=== PATIENT | male | born 1965 | race Caucasian/White ===

== ENCOUNTER 2018-12-19 15:15 | Emergency (ER) | payer SELFPAY ==
[2018-12-19] MEDS ORDERED: IV NORMAL SALINE 1,000ML 1,000 ML IV ONE ×2 (15:30→17:30)
--- NOTE | 2018-12-19 15:45 | PHYS DOC ---
Past History Past Medical History: CVA, Depression, Diabetes, High Cholesterol, Heart Disease, Hypertension, Other Additional Past Medical Histor: kidney injury Smoking: Cigarettes Alcohol Use: Heavy Adult General Chief Complaint Chief Complaint: ALTERED MENTAL STATUS HPI HPI Patient is a 53-year-old male brought in by EMS due to weakness. This has been going on for the past several days. Nothing seems to make it better or worse. Patient denies any chest pain or palpitations. Patient was brought in by EMS. His blood sugar was in the 130s for EMS. No fever. No specific side for the weakness. More an overall feeling of tiredness.[] Review of Systems Review of Systems Constitutional: Denies fever or chills [] Eyes: Denies change in visual acuity, redness, or eye pain [] HENT: Denies nasal congestion or sore throat [] Respiratory: Denies cough or shortness of breath [] Cardiovascular: No chest pain or palpitations[] GI: Denies abdominal pain, nausea, vomiting, bloody stools or diarrhea [] : Denies dysuria or hematuria [] Musculoskeletal: Denies back pain or joint pain [] Integument: Denies rash or skin lesions [] Neurologic: Denies headache, focal weakness or sensory changes [] Endocrine: Denies polyuria or polydipsia [] All other systems were reviewed and found to be within normal limits, except as documented in this note. Current Medications Current Medications Current Medications Medications (Trade) Dose Ordered Sig/Jace Start Time Stop Time Status Last Admin Dose Admin Sodium Chloride 1,000 ml @ 1,000 mls/hr 1X ONCE 12/19/18 15:30 12/19/18 16:29 UNV 12/19/18 15:36 1,000 MLS/HR Physical Exam Physical Exam Constitutional: Well developed, well nourished, sleepy, non-toxic appearance. [] HENT: Normocephalic, atraumatic, bilateral external ears normal, oropharynx moist, no oral exudates, nose normal. [] Eyes: PERRLA, EOMI, conjunctiva normal, no discharge. [] Neck: Normal range of motion, no tenderness, supple, no stridor. [] Cardiovascular:Heart rate regular rhythm, no murmur [] Lungs & Thorax: Bilateral breath sounds clear to auscultation [] Abdomen: Bowel sounds normal, soft, no tenderness, no masses, no pulsatile masses. [] Skin: Warm, dry, no erythema, no rash. [] Back: No tenderness, no CVA tenderness. [] Extremities: No tenderness, no cyanosis, no clubbing, ROM intact, no edema. [] Neurologic: Somnolent but aroused to verbal stimuli and oriented X 3, normal m otor function, normal sensory function, no focal deficits noted. [] Psychologic: Affect flat, judgement normal, mood normal. [] EKG EKG EKG shows a sinus rhythm at 98 bpm, left axis, normal QTC at 446 ms, no ST elevations. No acute changes when compared with EKG of 03/03/2012. Interpreted by me at 1523.[] Radiology/Procedures Radiology/Procedures PROCEDURE: PORTABLE CHEST 1V PORTABLE CHEST 1V History: Weakness Comparison: May 30, 2014. Findings: Low lung volumes with patchy bibasilar opacities. Linear density projecting over the left lung apex, similar compared to prior. No pleural effusion. Normal heart size. Impression: 1. Low lung volumes with patchy bibasilar opacities, most likely atelectasis.[] Course & Med Decision Making Course & Med Decision Making Pertinent Labs and Imaging studies reviewed. (See chart for details) ED course: Patient arrived, was placed in bed, and tolerated exam well. Patient had 3 medicines with him to include Requip, temazepam, and hydrocodone 10 mg/acetaminophen 325 mg tablets. These were all 3 filled on 12/14/2018. The hydrocodone-acetaminophen was a prescription for 90 tablets and there are approximately 30 tablets remaining in the bottle. IV access was established, he was given IV fluids because his blood pressure was noted to be on the low side and he was mildly tachycardic. An initial in and out catheter was performed to provide urine. Patient's mental status did improve during his emergency department stay. Laboratory testing was noted, additional fluids were adm inistered and an indwelling urinary catheter was placed. Consultation was made with the hospitalist service for admission. It was and that the patient would do better at [facility] due to greater services available including nephrology. Findings were discussed with patient and family who voiced understanding. All questions were answered. He was transferred in improved condition. Medical decision making: Patient with somnolence most likely is result of to much narcotic use. His ammonia is also noted to be elevated. He is also noted to be in acute renal failure with a mild hyperkalemia. He is being transferred for higher level of care.[] Dragon Disclaimer Dragon Disclaimer This electronic medical record was generated, in whole or in part, using a voice recognition dictation system. Departure Departure: Impression: Primary Impression: Altered mental status Additional Impressions: Hyperkalemia Acute renal failure Hyperammonemia Disposition: 05 TRANSFER OTHER Admitting Physician: Claude Parekh Condition: STABLE Referrals: PCP,NO (PCP) Problem Qualifiers Primary Impression: Altered mental status Altered mental status type: somnolence Qualified Codes: R40.0 - Somnolence Additional Impressions: Acute renal failure Acute renal failure type: unspecified Qualified Codes: N17.9 - Acute kidney failure, unspecified LANIE FOWLER DO Dec 19, 2018 15:45
[2018-12-19 15:52] LABS: BASO % 0 % (0-3); EOS # 0.2 x10^3/uL (0.0-0.7); EOS % 3 % (0-3); HEMATOCRIT 38.6 % (39.0-53.0); HEMOGLOBIN 12.7 g/dL (13.0-17.5); LYMPH % 12 % (24-48); MEAN CORPUSCULAR HEMOGLOBIN 29 pg (25-35); MEAN CORPUSCULAR HGB CONC 33 g/dL (31-37); MEAN CORPUSCULAR VOLUME 89 fL (79-100); MONO # 0.9 x10^3/uL (0.0-1.1); MONO % 11 % (0-9); NEUT # 5.9 x10^3uL (1.8-7.7); NEUT % 74 % (31-73); PLATELET COUNT 150 x10^3/uL (140-400); RED BLOOD COUNT 4.35 x10^6/uL (4.30-5.70); RED CELL DISTRIBUTION WIDTH 14.8 % (11.5-14.5); WHITE BLOOD COUNT 8.1 x10^3/uL (4.0-11.0)
--- NOTE | 2018-12-19 16:02 | RAD ---
PORTABLE CHEST 1V History: Weakness Comparison: May 30, 2014. Findings: Low lung volumes with patchy bibasilar opacities. Linear density projecting over the left lung apex, similar compared to prior. No pleural effusion. Normal heart size. Impression: 1. Low lung volumes with patchy bibasilar opacities, most likely atelectasis. Electronically signed by: Bk Enciso DO (12/19/2018 3:59 PM) [facility]
[2018-12-19 16:11] LABS: ACETAMIN < 2 mcg/mL (10-30); SALIC 1.3 mg/dL (2.8-20.0)
[2018-12-19 16:12] LABS: ETHANOL < 10 mg/dL (0-10)
[2018-12-19 16:17] LABS: ALBUMIN 3.2 g/dL (3.4-5.0); ALBUMIN/GLOBULIN RATIO 0.7 (1.0-1.7); CALCIUM 8.1 mg/dL (8.5-10.1); CREATININE 6.5 mg/dL (0.7-1.3); MAGNESIUM 2.4 mg/dL (1.8-2.4); POTASSIUM 5.3 mmol/L (3.5-5.1); TOTAL BILIRUBIN 0.4 mg/dL (0.2-1.0); TOTAL PROTEIN 7.5 g/dL (6.4-8.2)
--- NOTE | 2018-12-19 16:22 | EKG ---
[address] [address] Test Date: 2018-12-19 Test Time: 15:21:33 Pat Name: ELEAZAR DOMINIQUE Department: Room: Gender: M Radiology Specialist: : [id number] Requested By: LANIE FOWLER Order Number: [id number] Reading MD: Measurements Intervals [place] Rate: 98 P: 26 NC: 162 QRS: -13 QRSD: 88 T: 104 QT: 348 QTc: 446 Interpretive Statements SINUS RHYTHM LEFTWARD AXIS T ABNORMALITY IN HIGH LATERAL LEADS ABNORMAL ECG RI6.01 No previous ECG available for comparison
[2018-12-19 16:52] LABS: BARBITURATES NEG (NEG); BENZODIAZEPINES POS (NEG); CANNABINOIDS NEG (NEG); COCAINE NEG (NEG); METHADONE NEG (NEG); OPIATES POS (NEG); PHENCYCLIDINE NEG (NEG)
[2018-12-19 17:00] LABS: AMPHETAMINE/METHAMPHETAMINE NEG (NEG)
[2018-12-19 17:04] LABS: AMORPHOUS SEDIMENT,UR PRESENT /HPF; BACTERIA,URINE 0 /HPF (0-FEW); BILIRUBIN,URINE NEG (NEG); CLARITY,URINE CLOUDY; COLOR,URINE YELLOW; GLUCOSE,URINE NEG (NEG); HYALINE CASTS, URINE OCC /HPF; NITRITE,URINE NEG (NEG); RBC,URINE 0 /HPF (0-2); SQUAMOUS EPITHELIAL CELL,UR OCC /LPF; UROBILINOGEN,URINE 0.2 mg/dL (0.2 mg/dL); WBC,URINE OCC /HPF (0-4)
[2018-12-19 19:49] VITALS: BP 122/72
== END 2018-12-19 19:55 | disposition short-term general hospital (02) ==
LOC: ER 15:15
DX: N17.9 Acute kidney failure, unspecified (principal); E72.20 Disorder of urea cycle metabolism, unspecified; E87.5 Hyperkalemia; R41.82 Altered mental status, unspecified; F17.210 Nicotine dependence, cigarettes, uncomplicated; E11.9 Type 2 diabetes mellitus without complications; E78.00 Pure hypercholesterolemia, unspecified; I11.9 Hypertensive heart disease without heart failure; Z86.73 Personal history of transient ischemic attack (TIA), and cerebral infarction without residual deficits; F10.20 Alcohol dependence, uncomplicated; Y90.0 Blood alcohol level of less than 20 mg/100 ml
CPT/HCPCS: 36415; 51702; 71045; 80053; 80307; 80329; 81001; 82140; 82550; 83605; 83735; 83880; 84484; 85025; 85610; 85730; 93005; 96360; 99285; G0480; 82003; J7030

== ENCOUNTER 2019-01-07 20:02 | Inpatient (IN) | payer SELFPAY ==
[~2019-01-07] VITALS: Ht 172.7 cm; Wt 89.0 kg
[2019-01-07] MEDS ORDERED: ASPIRIN 81 MG TAB.CHEW PO ONE (20:30)
--- NOTE | 2019-01-07 20:33 | PHYS DOC ---
Past History Past Medical History: CVA, Depression, Diabetes, High Cholesterol, Heart Disease, Hypertension, Other Additional Past Medical Histor: kidney injury Past Surgical History: Other Additional Past Surgical Histo: cardiac stents 2019 Smoking: Cigarettes Alcohol Use: Heavy Drug Use: None Adult General Chief Complaint Chief Complaint: SYNCOPE HPI HPI 53-year-old male presents with syncopal episode. Around 5:30 this morning he was given something out of the refrigerator and he passed out. He did not feel it coming. He woke up on the floor with right for pain. He is able to move his arm and shoulder. He did not come in right away because he did not think he answers injury. He presents this evening because he continued to feel dizzy all day. He describes that as a lightheaded, off balance feeling. He has been having dizziness like this intermittently for at least a couple weeks. He was recently admitted to [facility] and they wanted to change some of his medications. The patient signed out AMA. He is unclear as to whether or not they've made medication changes before he left. He is taking all of his prescribed medicines. He is on several medications. He states that he had an echocardiogram that was reported normal. Patient denies any previous cardiac di sease. He has "a couple strokes" without lasting deficits. He is on Plavix. Review of Systems Review of Systems Constitutional: Denies fever or chills [] Eyes: Denies change in visual acuity, redness, or eye pain [] HENT: Denies nasal congestion or sore throat [] Respiratory: Denies cough or shortness of breath [] Cardiovascular: No additional information not addressed in HPI [] GI: Denies abdominal pain, nausea, vomiting, bloody stools or diarrhea [] : Denies dysuria or hematuria [] Musculoskeletal: Denies back pain or joint pain [] Integument: Denies rash or skin lesions [] Neurologic: Syncope, Dizziness. Denies headache, focal weakness or sensory changes [] Endocrine: Denies polyuria or polydipsia [] All other systems were reviewed and found to be within normal limits, except as documented in this note. Current Medications Current Medications Current Medications Medications (Trade) Dose Ordered Sig/Jace Start Time Stop Time Status Last Admin Dose Admin Aspirin (Children'S Aspirin) 324 mg 1X ONCE 01/07/19 20:30 01/07/19 20:31 Allergies Allergies Allergies Coded Allergies Type Severity Reaction Last Updated Verified No Known Drug Allergies 12/19/18 No Physical Exam Physical Exam Constitutional: Well developed, well nourished, no acute distress, non-toxic appearance. [] HENT: Normocephalic, atraumatic, bilateral external ears normal, oropharynx moist, no oral exudates, nose normal. [] Eyes: PERRLA, EOMI, conjunctiva normal, no discharge. [] Neck: Normal range of motion, no tenderness, supple, no stridor. [] Cardiovascular:Heart rate regular rhythm, no murmur [] Lungs & Thorax: Bilateral breath sounds clear to auscultation [] Abdomen: Bowel sounds normal, soft, no tenderness, no masses, no pulsatile masses. [] Skin: Warm, dry, no erythema, no rash. [] Back: No tenderness, no CVA tenderness. [] Extremities: No tenderness, no cyanosis, no clubbing, ROM intact, no edema. [] Neurologic: Alert and oriented X 3, normal motor function, normal sensory function, no focal deficits noted. [] Psychologic: Affect normal, judgement normal, mood normal. [] EKG EKG Sinus rhythm, rate 98, right axis deviation, no ST elevations or depressions, possible Q waves in V1, V2, lead 1 and 2.[] Radiology/Procedures Radiology/Procedures [] Impressions: Indication:Chest pain, syncope. TECHNIQUE:Portable AP chest X-ray COMPARISON: 12/19/2018 FINDINGS: Heart is normal in size. Mild prominence of bronchial markings. No focal consolidation No pneumothorax or pleural effusion. Visualized bony thorax within normal limits. IMPRESSION: Suggestion of mild bronchitis. Electronically signed by: Bryant Dahl DO (01/07/2019 8:57 PM) [facility] DICTATED AND SIGNED BY: BRYANT DAHL DO DATE: 01/07/192056 CC: QUITA ALAS DO; BLANKA FARLEY DO ~ Course & Med Decision Making Course & Med Decision Making Pertinent Labs and Imaging studies reviewed. (See chart for details) The patient's chest x-ray suggestive of bronchitis. His labs are significant for an elevated potassium of 5.4. His creatinine is 3.1. His records show this is an improved creatinine from his last admission. His troponin is unremarkable. I have given him a liter of normal saline. His proBNP is over 2400. His urine drug screen is positive for opiates and cocaine. The patient adamantly denies any cocaine use. Spoke with Dr. Parekh and he has agreed to admit the patient for a dditional workup. The patient is in agreement with this plan. [] Dragon Disclaimer Dragon Disclaimer This electronic medical record was generated, in whole or in part, using a voice recognition dictation system. Departure Departure: Impression: Primary Impression: Syncope Additional Impressions: Chest pain Hyperkalemia Cocaine use Disposition: ADMITTED INPATIENT Admitting Physician: Claude Parekh Condition: STABLE Referrals: BLANKA FARLEY DO (PCP) Problem Qualifiers QUITA ALAS DO Jan 07, 2019 20:33
[2019-01-07 20:59] LABS: BASO % 0 % (0-3); EOS % 0 % (0-3); HEMATOCRIT 42.3 % (39.0-53.0); LYMPH # 0.6 x10^3/uL (1.0-4.8); LYMPH % 6 % (24-48); MEAN CORPUSCULAR HEMOGLOBIN 29 pg (25-35); MEAN CORPUSCULAR HGB CONC 33 g/dL (31-37); MEAN CORPUSCULAR VOLUME 88 fL (79-100); MONO # 0.4 x10^3/uL (0.0-1.1); MONO % 4 % (0-9); NEUT # 8.7 x10^3uL (1.8-7.7); NEUT % 89 % (31-73); PLATELET COUNT 207 x10^3/uL (140-400); RED BLOOD COUNT 4.81 x10^6/uL (4.30-5.70); RED CELL DISTRIBUTION WIDTH 14.7 % (11.5-14.5); WHITE BLOOD COUNT 9.8 x10^3/uL (4.0-11.0)
--- NOTE | 2019-01-07 21:00 | RAD ---
Indication:Chest pain, syncope. TECHNIQUE:Portable AP chest X-ray COMPARISON: 12/19/2018 FINDINGS: Heart is normal in size. Mild prominence of bronchial markings. No focal consolidation No pneumothorax or pleural effusion. Visualized bony thorax within normal limits. IMPRESSION: Suggestion of mild bronchitis. Electronically signed by: Bryant Dahl DO (01/07/2019 8:57 PM) [facility]
[2019-01-07 21:27] LABS: ALBUMIN 3.1 g/dL (3.4-5.0); ALBUMIN/GLOBULIN RATIO 0.7 (1.0-1.7); CALCIUM 8.8 mg/dL (8.5-10.1); CREATININE 3.1 mg/dL (0.7-1.3); GFR 21.3; POTASSIUM 5.4 mmol/L (3.5-5.1); TOTAL BILIRUBIN 0.3 mg/dL (0.2-1.0); TOTAL PROTEIN 7.3 g/dL (6.4-8.2)
[2019-01-07 21:59] LABS: BARBITURATES NEG (NEG); BENZODIAZEPINES NEG (NEG); CANNABINOIDS NEG (NEG); COCAINE POS (NEG); METHADONE NEG (NEG); OPIATES POS (NEG); PHENCYCLIDINE NEG (NEG)
[2019-01-07] MEDS ORDERED: HYDROcodone/APAP 5/325MG 1 TAB TABLET PO ONE (22:00)
[2019-01-07 22:02] LABS: AMPHETAMINE/METHAMPHETAMINE NEG (NEG)
[2019-01-07] MEDS ORDERED: cloNIDine HCL 0.1 MG TABLET PO ONE (22:30)
[2019-01-07 22:31] LABS: BILIRUBIN,URINE NEG (NEG); CLARITY,URINE CLEAR; COLOR,URINE STRAW; GLUCOSE,URINE 100 mg/dL (NEG); NITRITE,URINE NEG (NEG); UROBILINOGEN,URINE 0.2 mg/dL (0.2 mg/dL)
[2019-01-07 22:32] LABS: AMORPHOUS SEDIMENT,UR PRESENT /HPF; BACTERIA,URINE FEW /HPF (0-FEW); RBC,URINE OCC /HPF (0-2); WBC,URINE 0 /HPF (0-4)
[2019-01-07] MEDS ORDERED: PANTOPRAZOLE IV 40 MG VIAL. IVP ONE (23:00)
[2019-01-07] MEDS ORDERED: FAMOTIDINE 20 MG/2 ML VIAL IVP ONE (23:00)
[2019-01-08] VITALS (12 sets, daily range): BP systolic 129–193; BP diastolic 75–109
[2019-01-08] MEDS ORDERED: ONDANSETRON PF 4 MG/2 ML VIAL. IV PRN (01:00)
--- NOTE | 2019-01-08 01:20 | NUR ---
The patient, ELEAZAR DOMINIQUE, 53 y/o, M admitted by LUI LOVE MD, was given written information regarding hospital policies, unit procedures and contact persons. Pt ambulated to ICU room 6. Pt complaining of R shoulder pain upon arrival. Valuables were checked and left with patient. Pt oriented to room, call light.
[2019-01-08] MEDS ORDERED: METHYL SALICYLATE/MENTHOL TOPICAL OINTMENT 57GM TUBE. TP PRN (01:30)
[2019-01-08] MEDS: LABETALOL HCL 100 MG TABLET PO SCH ×3 (01:45→20:24)
[2019-01-08] MEDS ORDERED: CYCL-331 PO (01:59)
[2019-01-08] MEDS ORDERED: ROPI0.5T2 PO (02:04)
[2019-01-08] MEDS ORDERED: TIZA4TAB2 PO (02:05)
[2019-01-08] MEDS ORDERED: TEMA30CA PO (02:05)
[2019-01-08] MEDS ORDERED: ATOR10TA60 PO (02:07)
[2019-01-08] MEDS ORDERED: AMLO10TA8 PO (02:07)
[2019-01-08] MEDS ORDERED: GABA-586 PO (02:08)
[2019-01-08] MEDS ORDERED: SACU1TAB4 PO (02:10)
[2019-01-08] MEDS ORDERED: ISOS60TA2 PO (02:12)
[2019-01-08] MEDS ORDERED: HYDR-52 PO (02:22)
[2019-01-08] MEDS ORDERED: PANT40TA5 PO (02:22)
[2019-01-08] MEDS ORDERED: FURO40TA4 PO (02:22)
[2019-01-08] MEDS ORDERED: SPIR25TA5 PO (02:22)
[2019-01-08] MEDS ORDERED: CARV25TA PO (02:23)
[2019-01-08] MEDS ORDERED: GLIM4TAB4 PO (02:25)
[2019-01-08] MEDS ORDERED: Influenza vaccine per PROTOCOL. MC PRN (03:30)
[2019-01-08] MEDS: HYDROcodone/APAP 10/325 1 TAB TABLET PO PRN ×3 (05:37→20:25)
--- NOTE | 2019-01-08 07:15 | EKG ---
[address] [address] Test Date: 2019-01-07 Test Time: 20:14:44 Pat Name: ELEAZAR DOMINIQUE Department: Room: [facility] 1 Gender: M Technical Support Internship: : 1965 Requested By: QUITA ALAS Order Number: [id number] Reading MD: Bhaskar Blake MD Measurements Intervals [place] Rate: 98 P: 158 PA: 164 QRS: -162 QRSD: 90 T: 57 QT: 352 QTc: 451 Interpretive Statements SINUS RHYTHM LVH NON-SPECIFIC ST/T CHANGES LIMB LEAD MISPLACEMENT Electronically Signed On 01-15-2019 10:12:37 CDT by Bhaskar Blake MD
[2019-01-08 07:29] LABS: BASO # 0.1 x10^3/uL (0.0-0.2); BASO % 1 % (0-3); EOS # 0.1 x10^3/uL (0.0-0.7); EOS % 1 % (0-3); HEMOGLOBIN 13.7 g/dL (13.0-17.5); LYMPH # 1.3 x10^3/uL (1.0-4.8); LYMPH % 14 % (24-48); MEAN CORPUSCULAR HEMOGLOBIN 29 pg (25-35); MEAN CORPUSCULAR HGB CONC 34 g/dL (31-37); MEAN CORPUSCULAR VOLUME 88 fL (79-100); MONO # 0.6 x10^3/uL (0.0-1.1); MONO % 6 % (0-9); NEUT # 7.7 x10^3uL (1.8-7.7); NEUT % 79 % (31-73); PLATELET COUNT 203 x10^3/uL (140-400); RED BLOOD COUNT 4.69 x10^6/uL (4.30-5.70); RED CELL DISTRIBUTION WIDTH 14.8 % (11.5-14.5); WHITE BLOOD COUNT 9.8 x10^3/uL (4.0-11.0)
[2019-01-08 07:41] LABS: ALBUMIN 2.8 g/dL (3.4-5.0); ALBUMIN/GLOBULIN RATIO 0.7 (1.0-1.7); CALCIUM 8.5 mg/dL (8.5-10.1); CREATININE 2.9 mg/dL (0.7-1.3); POTASSIUM 5.2 mmol/L (3.5-5.1); TOTAL BILIRUBIN 0.2 mg/dL (0.2-1.0); TOTAL PROTEIN 6.7 g/dL (6.4-8.2)
[2019-01-08] MEDS ORDERED: FLU VAX QS 2019-20 (36MOS+)/PF 0.5 ML SYRINGE. VAX IM ONE (09:00)
--- NOTE | 2019-01-08 10:07 | NUR ---
DR PICKETT INSTRUCT TO CANCEL ECHO PT HAD AN ECHO RECENTLY. WILL CONTINUE TO ASSESS.
--- NOTE | 2019-01-08 10:14 | PDOC2 ---
CONSULT Date of Admission DATE: 01/08/19 TIME: 10:14 Reason for Consult: Syncope Referring Physician: Dr. Parekh Chief Complaint Syncope Source: Chart review, Patient Problem List Problems Medical Problems: (1) Chest pain Status: Acute (2) Cocaine use Status: Acute (3) Hyperkalemia Status: Acute (4) Syncope Status: Acute History of Present Illness 53-year-old male with history of coronary artery disease and ischemic cardiomyopathy apparently got up this morning to get something out of the refrigerator and he had an episode of chano syncope. This was not preceded by chest pain or palpitations. He also denied any orthopnea/PND. He was recently admitted to [facility] for dizziness that was thought to be secondary to dehydration but he went AMA prior to medication adjustment. Past Medical History Coronary artery disease s/p PCI/stents to LAD and RCA Ischemic cardiomyopathy, chronic systolic heart failure with LVEF 30-35% on recent 2-D echo Hypertension Hyperlipidemia Diabetes mellitus type 2 Chronic renal insufficiency Depression Gastroesophageal reflux disease Osteoarthritis Past Surgical History Tonsillectomy Family History Hypertension and coronary artery disease Social History Patient denied any smoking alcohol or drug use but his urine tested positive for cocaine on admission Current Medications Current Medications Aspirin (Children'S Aspirin) 324 mg 1X ONCE PO Last administered on 01/07/19at 21:10; Start 01/07/19 at 20:30; Stop 01/07/19 at 20:31; Status DC Acetaminophen/ Hydrocodone Bitart (Lortab 5/325) 1 tab 1X ONCE PO Last admini stered on 01/07/19at 21:54; Start 01/07/19 at 22:00; Stop 01/07/19 at 22:01; Status DC Famotidine (Pepcid Vial) 20 mg 1X ONCE IVP Last administered on 01/07/19at 23:14; Start 01/07/19 at 23:00; Stop 01/07/19 at 23:01; Status DC Pantoprazole Sodium (Protonix Vial) 40 mg 1X ONCE IVP Last administered on 01/07/19at 23:14; Start 01/07/19 at 23:00; Stop 01/07/19 at 23:01; Status DC Clonidine HCl (Catapres) 0.2 mg 1X ONCE PO Last administered on 01/07/19at 23:16; Start 01/07/19 at 22:30; Stop 01/07/19 at 22:55; Status DC Ondansetron HCl (Zofran) 4 mg PRN Q4HRS PRN IV NAUSEA/VOMITING; Start 01/08/19 at 01:00; Stop 01/09/19 at 00:59 Multi-Ingredient Ointment (Analgesic [place]) 1 phillip PRN QID PRN TP MUSCLE PAIN Last administered on 01/08/19at 01:45; Start 01/08/19 at 01:30 Labetalol HCl (Trandate) 100 mg BID PO Last administered on 01/08/19at 10:03; Start 01/08/19 at 01:45 Influenza Virus Vaccine Quadrival (Afluria Quad 2019-20 (3yr Up) Syringe) 0.5 ml ONCE ONCE VAX IM Last administered on 01/08/19at 10:05; Start 01/08/19 at 09:00; Stop 01/08/19 at 09:01; Status DC Info (FLU VACCINE per PROTOCOL) 1 ea PRN 1X PRN MC PER PROTOCOL; Start 01/08/19 at 03:30; Status Cancel Acetaminophen/ Hydrocodone Bitart (Lortab 10/325) 1 tab PRN Q6HRS PRN PO PAIN Last administered on 01/08/19at 05:37; Start 01/08/19 at 03:30 Active Scripts Active Reported Glimepiride 4 Mg Tablet 1 Tab PO BID76 Coreg (Carvedilol) 25 Mg Tablet 25 Mg PO BIDWMEALS Spironolactone 25 Mg Tablet 1 Tab PO DAILY Furosemide 40 Mg Tablet 1 Tab PO DAILY07 Pantoprazole Sodium 40 Mg Tablet.dr 1 Tab PO BID Hydrocodone-Acetamin 10-325 mg (Hydrocodone/Acetaminophen) 1 Each Tablet 1 Tab PO PRN Q6HRS PRN Isosorbide Mononitrate Er (Isosorbide Mononitrate) 60 Mg Tab.er.24h 60 Mg PO DAILY07 Entresto 97 mg-103 mg Tablet (Sacubitril/Valsartan) 1 Each Tablet 1 Each PO BID Gabapentin (Gabapentin) 300 Mg Capsule 300 Mg PO BID76 Atorvastatin Calcium 10 Mg Tablet 1 Tab PO DAILY Amlodipine Besylate 10 Mg Tablet 1 Tab PO DAILY Temazepam 30 Mg Capsule 1 Cap PO QHS Tizanidine Hcl (Tizanidine HCl) 4 Mg Tablet 4 Mg PO TID Ropinirole Hcl 0.5 Mg Tablet 0.5 Mg PO QHS Cyclobenzaprine Hcl 10 Mg Tablet 1 Tab PO TID Allergies: Coded Allergies: No Known Drug Allergies (Unverified , 12/19/18) PSYCHOLOGICAL ROS: No: Hallucinations Eyes: No: Loss of vision HEENT: No: Epistaxis Respiratory: No: Hemoptysis, Shortness of breath Cardiovascular: No: Chest Pain Gastrointestinal: No: Vomiting Neurological: No: Seizures Skin: No: Rash General: Alert, Oriented X3 HEENT: Atraumatic Lungs: Clear to auscultation Heart: Regular rate Abdomen: Soft Extremities: No edema Psych/Mental Status: Mood NL VITALS Vital Signs Date Time Temp Pulse Resp B/P (MAP) Pulse Ox O2 Delivery O2 Flow Rate FiO2 01/08/19 10:03 91 177/108 01/08/19 07:13 18 Room Air 01/08/19 05:37 98 01/07/19 20:18 98.2 Labs Laboratory Tests Test 01/07/19 20:40 01/07/19 21:40 01/08/19 03:17 01/08/19 05:41 White Blood Count 9.8 x10^3/uL (4.0-11.0) 9.8 x10^3/uL (4.0-11.0) Red Blood Count 4.81 x10^6/uL (4.30-5.70) 4.69 x10^6/uL (4.30-5.70) Hemoglobin 14.0 g/dL (13.0-17.5) 13.7 g/dL (13.0-17.5) Hematocrit 42.3 % (39.0-53.0) 41.0 % (39.0-53.0) Mean Corpuscular Volume 88 fL (79-100) 88 fL (79-100) Mean Corpuscular Hemoglobin 29 pg (25-35) 29 pg (25-35) Mean Corpuscular Hemoglobin Concent 33 g/dL (31-37) 34 g/dL (31-37) Red Cell Distribution Width 14.7 % (11.5-14.5) 14.8 % (11.5-14.5) Platelet Count 207 x10^3/uL (140-400) 203 x10^3/uL (140-400) Neutrophils (%) (Auto) 89 % (31-73) 79 % (31-73) Lymphocytes (%) (Auto) 6 % (24-48) 14 % (24-48) Monocytes (%) (Auto) 4 % (0-9) 6 % (0-9) Eosinophils (%) (Auto) 0 % (0-3) 1 % (0-3) Basophils (%) (Auto) 0 % (0-3) 1 % (0-3) Neutrophils # (Auto) 8.7 x10^3uL (1.8-7.7) 7.7 x10^3uL (1.8-7.7) Lymphocytes # (Auto) 0.6 x10^3/uL (1.0-4.8) 1.3 x10^3/uL (1.0-4.8) Monocytes # (Auto) 0.4 x10^3/uL (0.0-1.1) 0.6 x10^3/uL (0.0-1.1) Eosinophils # (Auto) 0.0 x10^3/uL (0.0-0.7) 0.1 x10^3/uL (0.0-0.7) Basophils # (Auto) 0.0 x10^3/uL (0.0-0.2) 0.1 x10^3/uL (0.0-0.2) Sodium Level 133 mmol/L (136-145) 135 mmol/L (136-145) Potassium Level 5.4 mmol/L (3.5-5.1) 5.2 mmol/L (3.5-5.1) Chloride Level 100 mmol/L (98-107) 104 mmol/L (98-107) Carbon Dioxide Level 25 mmol/L (21-32) 20 mmol/L (21-32) Anion Gap 8 (6-14) 11 (6-14) Blood Urea Nitrogen 61 mg/dL (8-26) 58 mg/dL (8-26) Creatinine 3.1 mg/dL (0.7-1.3) 2.9 mg/dL (0.7-1.3) Estimated GFR (Cockcroft-Gault) 21.3 23.0 BUN/Creatinine Ratio 20 (6-20) 20 (6-20) Glucose Level 214 mg/dL (70-99) 65 mg/dL (70-99) Calcium Level 8.8 mg/dL (8.5-10.1) 8.5 mg/dL (8.5-10.1) Total Bilirubin 0.3 mg/dL (0.2-1.0) 0.2 mg/dL (0.2-1.0) Aspartate Amino Transf (AST/SGOT) 16 U/L (15-37) 16 U/L (15-37) Alanine Aminotransferase (ALT/SGPT) 19 U/L (16-63) 16 U/L (16-63) Alkaline Phosphatase 104 U/L (46-116) 93 U/L (46-116) Troponin I Quantitative < 0.017 ng/mL (0-0.055) 0.022 ng/mL (0-0.055) 0.025 ng/mL (0-0.055) OZ-Jis-H-Type Natriuretic Peptide 2466 pg/mL (0-124) Total Protein 7.3 g/dL (6.4-8.2) 6.7 g/dL (6.4-8.2) Albumin 3.1 g/dL (3.4-5.0) 2.8 g/dL (3.4-5.0) Albumin/Globulin Ratio 0.7 (1.0-1.7) 0.7 (1.0-1.7) Urine Collection Type Unknown Urine Color Straw Urine Clarity Clear Urine pH 7.0 Urine Specific [place] 1.020 Urine Protein >100 mg/dl (NEG-TRACE) Urine Glucose (UA) 100 mg/dL (NEG) Urine Ketones (Stick) Neg mg/dL (NEG) Urine Blood Trace (NEG) Urine Nitrite Neg (NEG) Urine Bilirubin Neg (NEG) Urine Urobilinogen Dipstick 0.2 mg/dL (0.2 mg/dL) Urine Leukocyte Esterase Neg (NEG) Urine RBC Occ /HPF (0-2) Urine WBC 0 /HPF (0-4) Urine Squamous Epithelial Cells None /LPF Urine Amorphous Sediment Present /HPF Urine Bacteria Few /HPF (0-FEW) Urine Opiates Screen Pos (NEG) Urine Methadone Screen Neg (NEG) Urine Barbiturates Neg (NEG) Urine Phencyclidine Screen Neg (NEG) Urine Amphetamine/Methamphetamine Neg (NEG) Urine Benzodiazepines Screen Neg (NEG) Urine Cocaine Screen Pos (NEG) Urine Cannabinoids Screen Neg (NEG) Urine Ethyl Alcohol Neg (NEG) Assessment/Plan 1. Syncope most probably secondary to dehydration. Hold diuretics. Stop entresto secondary to renal insufficiency and hyperkalemia. 2. Coronary artery disease s/p PCI/stents to LAD and RCA, presently stable and chest pain-free. Continue current secondary prevention measures. 3. Chronic systolic heart failure, ischemic heart myopathy with recent 2-D echo December 2018 showing LVEF 30-35%. He is clinically well compensated. Stop entresto as stated above. Blood pressure elevated on admission but presently well-controlled. We will consider hydralazine once blood pressure stabilizes. We will address the issue of AICD implantation as an outpatient. 4. Hyperlipidemia: Continue statin therapy 5. Diabetes mellitus type 2: Treated per IM Thank you for your consultation CONCEPCION PICKETT MD Jan 08, 2019 10:14
--- NOTE | 2019-01-08 15:32 | NUR ---
WALKED PT AROUND ICU AND PT WAS WEEK AND UNSTEADY. INFORMED DR. LOVE AND PT WILL STAY OVERNIGHT TO SEE PT/OT IN THE AM.
--- NOTE | 2019-01-08 16:33 | NUR ---
WHILE HELPING PT TAKE PHONE TRAINING ADMINISTRATOR OUT OF BAG FOUND SEVERAL BOTTLES OF MEDICATION. INFORMED PT THAT I WOULD TAKE MEDICATION TO PHARMACY FOR SAFE KEEPING. MADE A COUNT OF MEDICATION WITH PHARMACIST. PLACE LIST OF MEDICATION IN CHART.
--- NOTE | 2019-01-08 17:50 | NUR ---
PT SBP IN THE 190S CONTACT DR. LOVE AND INSTRUCTED TO START NEW BP MEDS.
[2019-01-08] MEDS: amLODIPine BESYLATE 10 MG TABLET PO SCH (17:59)
[2019-01-08] MEDS: ISOSORBIDE MONONITRATE ER 30 MG TAB.ER.24H PO SCH (17:59)
--- NOTE | 2019-01-08 18:40 | HP ---
ADMIT DATE: 01/07/2019 HISTORY OF PRESENT ILLNESS: The patient is a 53-year-old, male patient who basically came to the Emergency Room with a syncopal episode. He apparently woke up around 5:30 in the morning and was attempting to get something out of the refrigerator and passed out. He did not feel it coming. He woke up on the floor and he was able to move all his arms and shoulders. He did not come to the Emergency Room right away because he did not think he sustained any injury. He presented yesterday evening because he continued to feel dizzy all the day. He described it as lightheadedness off-balance feeling. He has been having dizziness like this intermittently for at least a couple of weeks. He was recently admitted to [facility] and they wanted to change some of his medications; however, the patient signed himself against medical advice. He is unclear whether or not they have made any medication changes before he left. He actually did not allow us to make any changes and was adamant and left against medical advice. He is on multiple medications that are prescribed by different doctors and that might be contributing to his symptoms as he is uninsured and he gets samples from different doctors. He stated he had an echocardiogram, which was reportedly normal. He denied any previous cardiac disease. He has a couple of strokes without lasting deficits. He is on Plavix. He was evaluated in the Emergency Room that includes his lab work, which was unremarkable with mild hyponatremia and mild hyperkalemia. His BUN and creatinine are elevated. He has also had markedly elevated beta-natriuretic peptide of 2466. His first set of cardiac enzyme was less than 0.017. He was admitted to do 2 more sets of cardiac enzyme and to consult the cardiology team. His chest x-ray was unremarkable. PAST MEDICAL HISTORY: Significant for coronary artery disease, status post PCI with stent deployment to left anterior descending and right coronary artery, ischemic cardiomyopathy with chronic systolic congestive heart failure with left ventricular ejection fraction of 30-35% on recent echocardiogram. He has hypertension, hyperlipidemia, type 2 diabetes mellitus, chronic renal insufficiency, depression, gastroesophageal reflux disease, and osteoarthritis. PAST SURGICAL HISTORY: Significant for tonsillectomy. FAMILY HISTORY: Significant for hypertension and coronary artery disease. SOCIAL HISTORY: The patient denied any smoking, alcohol, or drug use. However, his urine tested positive for cocaine on admission. MEDICATIONS: He is currently on following medications: He is on aspirin 81 mg once a day, Tylenol/hydrocodone 5/325 one tablet every 4 hours as needed. He is on famotidine 20 mg once a day, clonidine 0.2 mg, ondansetron 4 mg every 4 hours as needed, analgesic balm 4 times a day, labetalol 100 mg twice a day. ALLERGIES: He has no known drug allergies. REVIEW OF SYSTEMS: As per history of present illness. PHYSICAL EXAMINATION: GENERAL: On arrival to the Emergency Room, he looked well and was clearly in no apparent respiratory distress. No pallor, jaundice, cyanosis, or thyromegaly. No jugular venous distention. No limb edema. VITAL SIGNS: His heart rate was 91, blood pressure was 137/75, temperature was 98.2, respiratory rate was 16, and oxygen saturation was 98%. HEAD, EYES, EARS, NOSE, AND THROAT: Normocephalic, atraumatic. NECK: Supple. HEART: Showed normal first and second heart sounds. No gallop or murmur. CHEST: Clear to auscultation. No crepitation or rhonchi. ABDOMEN: Distended, soft, nontender. No guarding or rigidity. No organomegaly. All hernial orifice intact. Bowel sounds normal. NEUROLOGIC: He was awake, alert, responding appropriately. All cranial nerves intact. EXTREMITIES: He moves extremities without difficulty. LABORATORY DATA: His lab work in the Emergency Room showed a white cell count of 9800, hemoglobin 14, hematocrit 42, MCV 88, and platelet count 207,000 with normal manual differential. His chemistry showed a serum sodium 133, potassium 5.4, chloride 100, bicarbonate 25, anion gap of 8, BUN 61, creatinine 3.1, estimated GFR was 21 mL per minute. His glucose was 114. Calcium was 8.8. Total bilirubin, AST, ALT, alkaline phosphatase were normal. His beta-natriuretic peptide was 2466. Total protein was 7.3, albumin 3.1. His urinalysis was essentially unremarkable and toxic screen was positive for opiates as well as cocaine. His chest x-ray showed that the heart size is normal. He has mild prominent bronchial markings, no focal consolidation, no pneumothorax or pleural effusion, visualized bony thorax was within normal limits. ASSESSMENT AND PLAN: In summary, this is a 53-year-old male patient who was admitted with a syncopal episode. His first set of cardiac enzymes showed troponin to be less than 0.17. We will admit the patient, do 2 more sets of cardiac enzyme, consult the Cardiology team, and also check his orthostatics. He apparently has recent echocardiograms done at [facility], which basically showed that he has ejection fraction of 35%. We will continue with all his current medication. He unfortunately is very noncompliant. He is on too many medications that he gets from different doctors, and on his last admission to [facility], he left against medical advice for allowing us to make any adjustments or go over all his medication to make sure that they are not the cause of some of his symptoms. LUI LOVE MD DR: FLORECITA/zeferino JOB#: [id number] / [id number]
[2019-01-08] MEDS ORDERED: rOPINIRole 0.5 MG TABLET. PO SCH (22:30)
[2019-01-08] MEDS ORDERED: TEMAZEPAM 15 MG CAPSULE PO SCH (22:30)
[2019-01-09 02:15] VITALS: BP 147/99
[2019-01-09] MEDS: HYDROcodone/APAP 10/325 1 TAB TABLET PO PRN ×3 (02:17→15:03)
[2019-01-09 06:00] VITALS: BP 185/102
[2019-01-09] MEDS: amLODIPine BESYLATE 10 MG TABLET PO SCH (06:28)
[2019-01-09 06:42] LABS: CALCIUM 8.7 mg/dL (8.5-10.1); GFR 22.1; POTASSIUM 5.1 mmol/L (3.5-5.1)
[2019-01-09] MEDS: ISOSORBIDE MONONITRATE ER 30 MG TAB.ER.24H PO SCH (08:56)
[2019-01-09] MEDS: LABETALOL HCL 100 MG TABLET PO SCH (08:56)
--- NOTE | 2019-01-09 09:20 | PDOC ---
CARDIO Progress Notes Date & Time Date of Service DATE: 01/09/19 TIME: 09:13 Time of Evaluation 09:13 Subjective Notes no dizziness, chest pain, palpitations, or syncope Vitals Vitals Vital Signs Date Time Temp Pulse Resp B/P (MAP) Pulse Ox O2 Delivery O2 Flow Rate FiO2 01/09/19 08:56 97 185/102 01/09/19 08:54 98 Room Air 01/09/19 06:00 97.8 18 Weight Weight [ ] Input and Output I.O. Intake and Output 01/09/19 06:59 Intake Total 800 ml Output Total 1750 ml Balance -950 ml Intake Oral 800 ml Output Urine Total 1750 ml # Voids 1 # Bowel Movements 1 Laboratory Labs Laboratory Tests Test 01/07/19 20:40 01/07/19 21:40 01/08/19 03:17 01/08/19 05:41 White Blood Count 9.8 x10^3/uL (4.0-11.0) 9.8 x10^3/uL (4.0-11.0) Red Blood Count 4.81 x10^6/uL (4.30-5.70) 4.69 x10^6/uL (4.30-5.70) Hemoglobin 14.0 g/dL (13.0-17.5) 13.7 g/dL (13.0-17.5) Hematocrit 42.3 % (39.0-53.0) 41.0 % (39.0-53.0) Mean Corpuscular Volume 88 fL (79-100) 88 fL (79-100) Mean Corpuscular Hemoglobin 29 pg (25-35) 29 pg (25-35) Mean Corpuscular Hemoglobin Concent 33 g/dL (31-37) 34 g/dL (31-37) Red Cell Distribution Width 14.7 % (11.5-14.5) 14.8 % (11.5-14.5) Platelet Count 207 x10^3/uL (140-400) 203 x10^3/uL (140-400) Neutrophils (%) (Auto) 89 % (31-73) 79 % (31-73) Lymphocytes (%) (Auto) 6 % (24-48) 14 % (24-48) Monocytes (%) (Auto) 4 % (0-9) 6 % (0-9) Eosinophils (%) (Auto) 0 % (0-3) 1 % (0-3) Basophils (%) (Auto) 0 % (0-3) 1 % (0-3) Neutrophils # (Auto) 8.7 x10^3uL (1.8-7.7) 7.7 x10^3uL (1.8-7.7) Lymphocytes # (Auto) 0.6 x10^3/uL (1.0-4.8) 1.3 x10^3/uL (1.0-4.8) Monocytes # (Auto) 0.4 x10^3/uL (0.0-1.1) 0.6 x10^3/uL (0.0-1.1) Eosinophils # (Auto) 0.0 x10^3/uL (0.0-0.7) 0.1 x10^3/uL (0.0-0.7) Basophils # (Auto) 0.0 x10^3/uL (0.0-0.2) 0.1 x10^3/uL (0.0-0.2) Sodium Level 133 mmol/L (136-145) 135 mmol/L (136-145) Potassium Level 5.4 mmol/L (3.5-5.1) 5.2 mmol/L (3.5-5.1) Chloride Level 100 mmol/L (98-107) 104 mmol/L (98-107) Carbon Dioxide Level 25 mmol/L (21-32) 20 mmol/L (21-32) Anion Gap 8 (6-14) 11 (6-14) Blood Urea Nitrogen 61 mg/dL (8-26) 58 mg/dL (8-26) Creatinine 3.1 mg/dL (0.7-1.3) 2.9 mg/dL (0.7-1.3) Estimated GFR (Cockcroft-Gault) 21.3 23.0 BUN/Creatinine Ratio 20 (6-20) 20 (6-20) Glucose Level 214 mg/dL (70-99) 65 mg/dL (70-99) Calcium Level 8.8 mg/dL (8.5-10.1) 8.5 mg/dL (8.5-10.1) Total Bilirubin 0.3 mg/dL (0.2-1.0) 0.2 mg/dL (0.2-1.0) Aspartate Amino Transf (AST/SGOT) 16 U/L (15-37) 16 U/L (15-37) Alanine Aminotransferase (ALT/SGPT) 19 U/L (16-63) 16 U/L (16-63) Alkaline Phosphatase 104 U/L (46-116) 93 U/L (46-116) Troponin I Quantitative < 0.017 ng/mL (0-0.055) 0.022 ng/mL (0-0.055) 0.025 ng/mL (0-0.055) YY-Wrs-D-Type Natriuretic Peptide 2466 pg/mL (0-124) Total Protein 7.3 g/dL (6.4-8.2) 6.7 g/dL (6.4-8.2) Albumin 3.1 g/dL (3.4-5.0) 2.8 g/dL (3.4-5.0) Albumin/Globulin Ratio 0.7 (1.0-1.7) 0.7 (1.0-1.7) Urine Collection Type Unknown Urine Color Straw Urine Clarity Clear Urine pH 7.0 Urine Specific [place] 1.020 Urine Protein >100 mg/dl (NEG-TRACE) Urine Glucose (UA) 100 mg/dL (NEG) Urine Ketones (Stick) Neg mg/dL (NEG) Urine Blood Trace (NEG) Urine Nitrite Neg (NEG) Urine Bilirubin Neg (NEG) Urine Urobilinogen Dipstick 0.2 mg/dL (0.2 mg/dL) Urine Leukocyte Esterase Neg (NEG) Urine RBC Occ /HPF (0-2) Urine WBC 0 /HPF (0-4) Urine Squamous Epithelial Cells None /LPF Urine Amorphous Sediment Present /HPF Urine Bacteria Few /HPF (0-FEW) Urine Opiates Screen Pos (NEG) Urine Methadone Screen Neg (NEG) Urine Barbiturates Neg (NEG) Urine Phencyclidine Screen Neg (NEG) Urine Amphetamine/Methamphetamine Neg (NEG) Urine Benzodiazepines Screen Neg (NEG) Urine Cocaine Screen Pos (NEG) Urine Cannabinoids Screen Neg (NEG) Urine Ethyl Alcohol Neg (NEG) Test 01/08/19 16:45 01/09/19 05:34 Glucose (Fingerstick) 73 mg/dL (70-99) Sodium Level 135 mmol/L (136-145) Potassium Level 5.1 mmol/L (3.5-5.1) Chloride Level 103 mmol/L (98-107) Carbon Dioxide Level 20 mmol/L (21-32) Anion Gap 12 (6-14) Blood Urea Nitrogen 54 mg/dL (8-26) Creatinine 3.0 mg/dL (0.7-1.3) Estimated GFR (Cockcroft-Gault) 22.1 Glucose Level 87 mg/dL (70-99) Calcium Level 8.7 mg/dL (8.5-10.1) Physical Exams HEENT: Neck Supple W Full Motion Chest: Symmetric Lungs: Clear to Auscultation Heart: S1S2, RRR Abdomen: Soft N/T Extremities: No Edema Neurology: alert, oriented, follow commands Assessment Assessment 1. Syncope most probably secondary to dehydration. No acute events on tele. 2. JAMES on CKD, hyperkalemia. Entresto discontinued 3. CAD s/p PCI/stents to LAD and RCA (01/2015), presently stable and chest pain-free. 4. Chronic systolic heart failure, ICM; LVEF 30-35% (12/2018) 5. Accelerated hypertension; labile 6. Hyperlipidemia; statin therapy 7. Diabetes, II 8. Substance abuse; UDS + cocaine. Denies use Recommendations Hold diuretics for now. No ACEi with JAMES Add ASA, hydralazine Continue secondary prevention measures. Discussed/ encouraged cessation from cocaine use Outpatient event monitor would be ideal, but patient is self pay and is unable to afford. JAI ORDAZ APRN Jan 09, 2019 09:19
[2019-01-09 11:16] VITALS: BP 133/94
[2019-01-09] MEDS ORDERED: LABE100T5 PO (12:58)
[2019-01-09] MEDS ORDERED: HYDR-2869 PO (12:58)
--- NOTE | 2019-01-09 15:25 | NUR ---
patient dc home with self care. patients iv dc'd. patient is given all medications from pharmacy and educated on what medications to continue and d/c after discharge. patient is given prescriptions for hydralazine and labetalol. patient ambulated off unit.
--- NOTE | 2019-01-09 21:43 | DS ---
DATE OF DISCHARGE: 01/09/2019 HOSPITAL COURSE: The patient is a 53-year-old male patient who was admitted with syncopal episode. He basically presented with a complaint of chano syncope. Apparently, got up yesterday morning to get something out of the refrigerator and had an episode of chano syncope. These are not preceded by any chest pain or palpitation. He also denied any orthopnea or paroxysmal nocturnal dyspnea. He was recently admitted to [facility] for dizziness that was thought to be secondary to dehydration and he left against medical advice prior to medication adjustment. He was seen in consultation here and has had lab work done, which revealed that he has mild hyperkalemia that is improving. His kidney function remained stable. His blood pressure remained stable with no evidence of postural hypertension. He was seen by the management trainee this morning and the plan was for him to be discharged home to follow at the Cardiology office. PHYSICAL EXAMINATION: GENERAL: When I saw him this afternoon, he looked well and was clearly in no apparent respiratory distress. No pallor, jaundice, cyanosis, or thyromegaly. No jugular venous distention. No limb edema. VITAL SIGNS: His heart rate was 106, blood pressure was 133/94, temperature was 98, respiratory rate was 16 and oxygen saturation was 98%. The rest of clinical examination is stable, has not really changed. LABORATORY DATA: His lab work showed a serum sodium 135, potassium 5.1, chloride 103, bicarbonate 20, anion gap 12, BUN 54, creatinine 3, estimated GFR was 22 mL per minute, his glucose was 87 and calcium was 8.7. White cell count was 9800, hemoglobin 13.7, hematocrit 41, MCV 88 and platelet count of 203,000. His toxic screen was positive for opiates as well as cocaine. Urinalysis, however, was unremarkable. DISCHARGE MEDICATIONS: He was discharged home to continue on following medications: Hydralazine 50 mg p.o. b.i.d., temazepam 30 mg at bedtime, Requip 0.5 mg at bedtime, amlodipine 10 mg once a day, isosorbide mononitrate 60 mg daily, labetalol 100 mg twice a day and hydrocodone/APAP 10/325 one tablet once a day. His Entresto was discontinued. FINAL DISCHARGE DIAGNOSES: 1. Syncopal episode, likely due to dehydration, resolved. Blood pressure is stable, has no evidence of postural hypertension. 2. Iumni-lh-ihcgakw kidney injury, hyperkalemia, resolved. His Entresto was discontinued. 3. Coronary artery disease, status post PCI with stent deployment to left anterior and right coronary artery in 01/2015. Presently stable, chest pain free. 4. Chronic systolic congestive heart failure due to ischemic cardiomyopathy with left ventricular ejection fraction of 30-35%. 5. Accelerated hypertension. 6. Hyperlipidemia. Continue on atorvastatin. 7. Type 2 diabetes mellitus. 8. Substance abuse. His urine drug screen was positive for cocaine. The patient was counseled to discontinue cocaine use. Hydralazine was added at 50 mg twice a day and the patient should follow with the Cardiology team. LUI LOVE MD DR: FLORECITA/zeferino JOB#: [id number] / [id number]
[2019-01-10] MEDS ORDERED: ASPIRIN ENTERIC COATED 81 MG TABLET.DR. PO SCH (08:00)
== END 2019-01-09 15:25 | disposition home or self-care (01) | DRG 683 ==
LOC: ER 20:02 → ICU 22:23 → UNDOADMIN 01-08 00:57
PROVIDERS: ADMIT Internal Medicine; ATTEND Internal Medicine
DX: N17.9 Acute kidney failure, unspecified (principal); E87.1 Hypo-osmolality and hyponatremia; I50.22 Chronic systolic (congestive) heart failure; I13.0 Hypertensive heart and chronic kidney disease with heart failure and stage 1 through stage 4 chronic kidney disease, or unspecified chronic kidney disease; R55 Syncope and collapse; E87.5 Hyperkalemia; E78.5 Hyperlipidemia, unspecified; E11.22 Type 2 diabetes mellitus with diabetic chronic kidney disease; E78.00 Pure hypercholesterolemia, unspecified; E86.0 Dehydration; F14.10 Cocaine abuse, uncomplicated; I25.10 Atherosclerotic heart disease of native coronary artery without angina pectoris; I25.5 Ischemic cardiomyopathy; K21.9 Gastro-esophageal reflux disease without esophagitis; N18.9 Chronic kidney disease, unspecified; Z79.02 Long term (current) use of antithrombotics/antiplatelets; Z82.49 Family history of ischemic heart disease and other diseases of the circulatory system; Z86.73 Personal history of transient ischemic attack (TIA), and cerebral infarction without residual deficits; Z87.891 Personal history of nicotine dependence; Z91.19 Patient's noncompliance with other medical treatment and regimen; Z95.5 Presence of coronary angioplasty implant and graft; F32.9 Major depressive disorder, single episode, unspecified; M19.90 Unspecified osteoarthritis, unspecified site
CPT/HCPCS: 36415; 71045; 80048; 80053; 80307; 81001; 82947; 83880; 84484; 85025; 90471; 90686; 93005; 96374; 96375; C9113; J3490; 99285-25

== ENCOUNTER 2019-11-04 14:15 | Emergency (ER) | payer MEDICAID ==
[~2019-11-04] VITALS: Ht 177.8 cm; Wt 90.2 kg
[~2019-11-04 14:15] MED LIST: AMLO10TA8 PO; ATOR10TA60 PO; CARV25TA PO; CYCL-331 PO; FURO40TA4 PO; GABA-586 PO; GLIM4TAB8 PO; HYDR-2767 PO; HYDR-2869 PO; ISOS60TA2 PO; LABE100T5 PO; PANT40TA5 PO; ROPI0.5T4 PO; SACU1TAB4 PO; SPIR25TA5 PO; TEMA30CA PO; TIZA4TAB2 PO
--- NOTE | 2019-11-04 14:26 | PHYS DOC ---
Past History Past Medical History: CVA, Depression, Diabetes, High Cholesterol, Heart Disease, Hypertension, Other Additional Past Medical Histor: kidney injury Past Surgical History: Other Additional Past Surgical Histo: cardiac stents 2019 Smoking: Cigarettes Alcohol Use: Heavy Drug Use: None Adult General HPI HPI Patient is a 53-year-old male who presents for bilateral toe issues. Patient has extensive list of comorbidities such as diabetes which he reports is well controlled, hypercholesterolemia, hypertension, and peripheral vascular disease with prior amputations of the toes. He reports a long history of foot ulcers for which he was well-established with outpatient wound care clinics in the past. Nonetheless, patient lost insurance and has not been seen back by his medicare contact specialist in the past 3 months. Patient reports chronically worsening bilateral feet. Patient reports injury to right foot last week when he kicked a curb. He was seen by his PCP 3 days ago who prescribed him an unknown "red antibiotic". He has been taking this daily as prescribed without issues. Nonetheless, concern for bilateral feet concerned him leading to his arrival at our ED for further evaluation. Of note, patient reports no constitutional symptoms such as fever, reports being at baseline neurologic, motor, and sensory status for both bilateral lower extremities. Denies any new wounds and ulcers Review of Systems Review of Systems Fourteen body systems of review of systems have been reviewed. See HPI for pertinent positives and negative responses, other hou all other systems are negative, non-pertinent or non-contributory Allergies Allergies Allergies Coded Allergies Type Severity Reaction Last Updated Verified No Known Drug Allergies 12/19/18 No Physical Exam Physical Exam Constitutional: Well developed, well nourished, no acute distress, non-toxic appearance. [] HENT: Normocephalic, atraumatic, bilateral external ears normal, oropharynx moist, no oral exudates, nose normal. [] Eyes: PERRLA, EOMI, conjunctiva normal, no discharge. [] Neck: Normal range of motion, no tenderness, supple, no stridor. [] Cardiovascular:Heart rate regular rhythm, no murmur [] Lungs & Thorax: Bilateral breath sounds clear to auscultation [] Abdomen: Bowel sounds normal, soft, no tenderness, no masses, no pulsatile masses. [] Skin: Warm, dry, no erythema, no rash. [] Back: No tenderness, no CVA tenderness. [] Extremities: No tenderness, no cyanosis, no clubbing, ROM intact, no edema. [] Neurologic: Alert and oriented X 3, normal motor function, normal sensory function, no focal deficits noted. [] Psychologic: Affect normal, judgement normal, mood normal. [] Current Patient Data Vital Signs Vital Signs Date Time Temp Pulse Resp B/P (MAP) Pulse Ox O2 Delivery O2 Flow Rate FiO2 11/04/19 16:45 18 Room Air 11/04/19 16:14 92 16 98 Room Air 11/04/19 14:36 97.9 104 18 150/94 (112) 97 Room Air Lab Results Laboratory Tests Test 11/04/19 15:08 11/04/19 16:05 White Blood Count 13.6 x10^3/uL Red Blood Count 4.25 x10^6/uL Hemoglobin 12.1 g/dL Hematocrit 37.2 % Mean Corpuscular Volume 88 fL Mean Corpuscular Hemoglobin 29 pg Mean Corpuscular Hemoglobin Concent 33 g/dL Red Cell Distribution Width 15.0 % Platelet Count 269 x10^3/uL Neutrophils (%) (Auto) 88 % Lymphocytes (%) (Auto) 6 % Monocytes (%) (Auto) 6 % Eosinophils (%) (Auto) 0 % Basophils (%) (Auto) 0 % Neutrophils # (Auto) 12.0 x10^3uL Lymphocytes # (Auto) 0.8 x10^3/uL Monocytes # (Auto) 0.8 x10^3/uL Eosinophils # (Auto) 0.1 x10^3/uL Basophils # (Auto) 0.0 x10^3/uL Platelet Estimate Pending Sodium Level 134 mmol/L Potassium Level 3.6 mmol/L Chloride Level 99 mmol/L Carbon Dioxide Level 20 mmol/L Anion Gap 15 Blood Urea Nitrogen 80 mg/dL Creatinine 5.3 mg/dL Estimated GFR (Cockcroft-Gault) 11.5 BUN/Creatinine Ratio 15 Glucose Level 122 mg/dL Calcium Level 8.6 mg/dL Total Bilirubin 0.3 mg/dL Aspartate Amino Transf (AST/SGOT) 17 U/L Alanine Aminotransferase (ALT/SGPT) 25 U/L Alkaline Phosphatase 94 U/L C-Reactive Protein 53.7 mg/L Total Protein 8.0 g/dL Albumin 3.1 g/dL Albumin/Globulin Ratio 0.6 Lactic Acid Level 0.5 mmol/L Current Medications Medications (Trade) Dose Ordered Sig/Jace Route PRN Reason Start Time Stop Time Status Last Admin Dose Admin Acetaminophen (Tylenol) 1,000 mg 1X ONCE PO 11/04/19 15:15 11/04/19 15:33 DC 11/04/19 15:22 Sodium Chloride 1,000 ml @ 1,000 mls/hr 1X ONCE IV 11/04/19 16:00 11/04/19 16:59 11/04/19 16:09 Ceftriaxone Sodium 1 gm/ Sodium Chloride 50 ml @ 100 mls/hr 1X ONCE IV 11/04/19 16:00 11/04/19 16:29 DC 11/04/19 16:14 Sodium Chloride 1,000 ml @ 1,000 mls/hr 1X ONCE IV 11/04/19 16:15 11/04/19 17:14 Sodium Chloride 50 ml @ As Directed STK-MED ONCE .ROUTE 11/04/19 16:12 11/04/19 16:12 DC Ceftriaxone Sodium (Rocephin) 1 gm STK-MED ONCE .ROUTE 11/04/19 16:12 11/04/19 16:12 DC Acetaminophen/ Hydrocodone Bitart (Lortab 7.5/325) 1 tab 1X ONCE PO 11/04/19 16:45 11/04/19 16:46 UNV 11/04/19 16:45 EKG EKG EKG obtained and interpreted by myself at 1720 hrs. as normal sinus rhythm at 90 bpm, QTC 467 otherwise grossly unremarkable intervals, left axis deviation, no ischemic findings, no STEMI Radiology/Procedures Radiology/Procedures PROCEDURE: FOOT BILAT 3V STUDY DATE: 11/04/2019 CLINICAL INDICATION / HISTORY: Reason: SEVERAL WOUNDS ON FEET, DIABETIC, CONCERN FOR OSTEOMYELITIS / Spl. Instructions: / History: . TECHNIQUE: AP, lateral and oblique views of the right and left feet. COMPARISON: None FINDINGS: No fracture or dislocation is identified. The bone density is normal. The joint space widths are maintained, and there are no erosions to suggest an inflammatory arthropathy. No soft tissue abnormality is seen. Incidentally noted are surgical fixation of the medial malleolus fracture on the lateral malleolus fracture with screws and lateral plate and screw construct fixation hardware respectively. Soft tissues show arterial vascular calcifications. Left foot also notable for amputation of the second toe at the level of the proximal interphalangeal joint. IMPRESSION: No radiographic findings suspicious for osteomyelitis in either foot. Electronically signed by: Norberto Haynes MD (11/04/2019 3:30 PM) [id number] Course & Med Decision Making Course & Med Decision Making Patient was seen on immediate ED arrival Tachycardic; otherwise vital signs stable and overall well-appearing Comprehensive history and physical exam obtained, pertinent labs and imaging ordered and reviewed Patient case reviewed with patient, discussed findings of elevated WBC likely from patient's chronic lower extremity wounds that do not show acute signs of osteomyelitis, IV antibiotics initiated for this Also discussed patient's markedly decreased renal function. Patient reports making urine 1-3 times daily but admits decreased production and last couple weeks. Patient admits to taking increased doses of Lasix recently but unsure what dose he takes, also unsure if patient's antibiotic is nephrotoxic at this time as patient is unclear. Last time he had dialysis was greater than 6 months ago Case discussed with patient, he was agreeable to admission Hospitalist called in case discussed, Dr. Parekh was agreeable to admission at [facility] for continued medical management. I also called [facility] nephrology group on-call behavioral health rn, Dr. Robb, and discussed need for nephrology consultation that does not require urgent dialysis Patient technically meets sepsis criteria with source likely being lower extremity ulcers. Lactic acid, blood cultures x2, 30 mls/kg IVF bolus, and IV antibiotics initiated within 1 hour of my physical assessment of patient. Again, presentation likely due to chronic lower extremity ulcer infection that are being treated with outpatient "RED" antibiotics Patient transferred to [facility] in stable condition for further medical management Dragon Disclaimer Dragon Disclaimer This electronic medical record was generated, in whole or in part, using a voice recognition dictation system. Date and Time of Assessment Date: Nov 04, 2019 Time: 15:25 Vital Signs Vital Signs Vital Signs Date Time Temp Pulse Resp B/P (MAP) Pulse Ox O2 Delivery O2 Flow Rate FiO2 11/04/19 16:45 18 Room Air 11/04/19 16:14 92 98 11/04/19 14:36 97.9 150/94 (112) Respirations Respiratory Effort: Normal Respiratory Pattern: Normal Cardiovascular Pulse Rhythm: Regular HEART: Nml rate, reg. rhythm Lung Sounds Breath Sounds: Clear Capillary Refill Capillary Refill: Rt Hand < 3 seconds Peripheral Pulse Pulse Location: Dorsalis Pedis Pulse Strength: Normal (2+) Pulse Assessment Method: Palpation Integumentary Skin: Warm, Dry Skin Moisture: Dry Skin Turgor: Normal Skin Color: warm, dry Fingernail Color: WNL Departure Departure: Impression: Primary Impression: Acute renal failure Additional Impressions: Bilateral leg ulcer Type 2 diabetes mellitus Peripheral vascular disease Sepsis Disposition: HOME/RESIDENCE PRIOR TO ADM Condition: STABLE Referrals: BLANKA FARLEY DO (PCP) Justification of Admission: Justification of Admission: Justification of Admission Dx: Yes Acute Renal Failure: 3-Fold Rise in Serum Crea Problem Qualifiers MUNDO PALOMINO DO Nov 04, 2019 14:26
[2019-11-04] MEDS ORDERED: ACETAMINOPHEN 500 MG TABLET PO ONE (15:15)
[2019-11-04 15:27] LABS: BASO % 0 % (0-3); EOS # 0.1 x10^3/uL (0.0-0.7); EOS % 0 % (0-3); HEMATOCRIT 37.2 % (39.0-53.0); HEMOGLOBIN 12.1 g/dL (13.0-17.5); LYMPH # 0.8 x10^3/uL (1.0-4.8); LYMPH % 6 % (24-48); MEAN CORPUSCULAR HEMOGLOBIN 29 pg (25-35); MEAN CORPUSCULAR HGB CONC 33 g/dL (31-37); MEAN CORPUSCULAR VOLUME 88 fL (79-100); MONO # 0.8 x10^3/uL (0.0-1.1); MONO % 6 % (0-9); NEUT % 88 % (31-73); PLATELET COUNT 269 x10^3/uL (140-400); RED BLOOD COUNT 4.25 x10^6/uL (4.30-5.70); WHITE BLOOD COUNT 13.6 x10^3/uL (4.0-11.0)
--- NOTE | 2019-11-04 15:32 | RAD ---
PROCEDURE: FOOT BILAT 3V STUDY DATE: 11/04/2019 CLINICAL INDICATION / HISTORY: Reason: SEVERAL WOUNDS ON FEET, DIABETIC, CONCERN FOR OSTEOMYELITIS / Spl. Instructions: / History: . TECHNIQUE: AP, lateral and oblique views of the right and left feet. COMPARISON: None FINDINGS: No fracture or dislocation is identified. The bone density is normal. The joint space widths are maintained, and there are no erosions to suggest an inflammatory arthropathy. No soft tissue abnormality is seen. Incidentally noted are surgical fixation of the medial malleolus fracture on the lateral malleolus fracture with screws and lateral plate and screw construct fixation hardware respectively. Soft tissues show arterial vascular calcifications. Left foot also notable for amputation of the second toe at the level of the proximal interphalangeal joint. IMPRESSION: No radiographic findings suspicious for osteomyelitis in either foot. Electronically signed by: Norberto Haynes MD (11/04/2019 3:30 PM) [id number]
[2019-11-04 15:34] LABS: CALCIUM 8.6 mg/dL (8.5-10.1); CREATININE 5.3 mg/dL (0.7-1.3); GFR 11.5; POTASSIUM 3.6 mmol/L (3.5-5.1)
[2019-11-04 15:42] LABS: ALBUMIN 3.1 g/dL (3.4-5.0); ALBUMIN/GLOBULIN RATIO 0.6 (1.0-1.7); C REACTIVE PROTEIN 53.7 mg/L (0-3.3); TOTAL BILIRUBIN 0.3 mg/dL (0.2-1.0)
[2019-11-04] MEDS ORDERED: IV NORMAL SALINE 1,000ML 1,000 ML IV ONE ×2 (16:00→16:15)
[2019-11-04] MEDS ORDERED: IV NORMAL SALINE 50ML 50 ML ONE (16:12)
[2019-11-04] MEDS ORDERED: cefTRIAXone SODIUM 1 GM VIAL ONE (16:12)
[2019-11-04] MEDS ORDERED: HYDROcodone/APAP 7.5/325MG 1 TAB TABLET PO ONE (16:45)
--- NOTE | 2019-11-04 17:13 | RAD ---
CHEST AP ONLY Clinical indications: Sepsis. COMPARISON: January 07, 2019. Findings: No acute lung infiltrate or pleural effusion or pulmonary edema or lung mass or pneumothorax is seen. The heart size, pulmonary vasculature, mediastinum and both daryn are unremarkable. Again seen is a metallic foreign body overlying the left apex. Impression: No acute radiographic abnormality is seen. Electronically signed by: Al Davenport MD (11/04/2019 5:09 PM) [id number]
[2019-11-04 17:17] LABS: % EOS 1 % (0-5); % LYMPHS 4 % (24-48); % MONOS 8 % (0-10); % SEGS 87 % (35-66); PLT ESTIMATE ADEQUATE (ADEQUATE)
--- NOTE | 2019-11-04 17:29 | RAD ---
CT STUDY OF THE ABDOMEN AND PELVIS WITHOUT CONTRAST CLINICAL INDICATIONS: Sepsis. TECHNIQUE: Noncontrast helical CT scanning of the abdomen and pelvis was performed. Without contrast, the sensitivity to detect organ pathology and GI tract pathology is decreased. PQRS compliance Statement One or more of the following individualized dose reduction techniques were utilized for this study: 1. Automated exposure control 2. Adjustment of the mA and/or kV according to patient size 3. Use of iterative reconstruction technique COMPARISON: No previous abdomen and pelvis CT. FINDINGS: The liver and spleen and pancreas are unremarkable on this noncontrast study. The gallbladder contains a few small radiopaque stones. No gallbladder wall thickening is seen. No extrahepatic biliary ductal dilatation is seen. No adrenal mass is evident. No hydronephrosis or hydroureter is seen. No urinary tract stone is evident. No renal mass is seen on this noncontrast study. Urinary bladder wall is smooth. No focal aneurysmal dilatation of the abdominal aorta is seen. No enlarged abdominal or pelvic lymphadenopathy is evident. No obstructive bowel pattern is seen. The terminal ileum is unremarkable. The appendix is normal. No free air or free fluid or mesenteric edema is seen. No lung base consolidation is evident. No lytic process is seen. IMPRESSION: No acute abnormality. Cholelithiasis. Electronically signed by: Al Davenport MD (11/04/2019 5:26 PM) [id number]
[2019-11-04 18:15] VITALS: BP 181/111
--- NOTE | 2019-11-04 18:26 | EKG ---
[address] [address] Test Date: 2019-11-04 Test Time: 17:17:36 Pat Name: ELEAZAR DOMINIQUE Department: Room: Gender: M Merchandising Lead: YU : 1965 Requested By: MUNDO PALOMINO Order Number: [id number] Reading MD: Measurements Intervals [place] Rate: 90 P: 36 MS: 186 QRS: -22 QRSD: 98 T: 62 QT: 378 QTc: 467 Interpretive Statements SINUS RHYTHM LEFTWARD AXIS OTHERWISE NORMAL ECG RI6.02 No previous ECG available for comparison
== END 2019-11-04 18:18 | disposition home or self-care (01) ==
LOC: ER 14:15
DX: N17.9 Acute kidney failure, unspecified (principal); L97.929 Non-pressure chronic ulcer of unspecified part of left lower leg with unspecified severity; L97.919 Non-pressure chronic ulcer of unspecified part of right lower leg with unspecified severity; E11.9 Type 2 diabetes mellitus without complications; I73.9 Peripheral vascular disease, unspecified; A41.9 Sepsis, unspecified organism; E78.00 Pure hypercholesterolemia, unspecified; I11.9 Hypertensive heart disease without heart failure; F17.210 Nicotine dependence, cigarettes, uncomplicated; F10.20 Alcohol dependence, uncomplicated; Z86.73 Personal history of transient ischemic attack (TIA), and cerebral infarction without residual deficits; Y90.9 Presence of alcohol in blood, level not specified
CPT/HCPCS: 36415; 71045; 73630; 74176; 80053; 83605; 85007; 85025; 86140; 87040; 93005; 96361; 96365; 99285; J0696; J7030

== ENCOUNTER 2019-12-08 04:16 | Emergency (ER) | payer MEDICAID ==
[~2019-12-08] VITALS: Ht 177.8 cm; Wt 84.9 kg
[~2019-12-08 04:16] MED LIST changes: -PANT40TA5 PO; +PANT40TA6 PO
--- NOTE | 2019-12-08 04:55 | PHYS DOC ---
Past History Past Medical History: CAD, CHF, Diabetes, High Cholesterol, Hypertension, Renal Failure, TIA Additional Past Medical Histor: kidney injury, BONE INFECTION,CHRONIC PAIN (MUNDO PALOMINO DO) Past Surgical History: Other Additional Past Surgical Histo: HEART STENTS, L TOE AMPUTATION (MUNDO PALOMINO DO) Smoking: Cigarettes Alcohol Use: None Drug Use: None (MUNDO PALOMINO DO) Adult General Chief Complaint Chief Complaint: Neck Pain HPI HPI Patient is a 54-year-old male who presents for neck pain and shortness of breath. Patient reports feelings of shortness of breath without any known inciting event or trauma that started earlier today while at rest. Patient reports this got worse throughout the day. Nothing known makes better, amb ulation and physical activity make worse. Patient reports falling asleep and subsequently rolling out of bed hitting the floor, a <2 ft fall. He did not hit his head, no loss of consciousness suffered but admits neck tightness and pain to bilateral muscle bellies ever since. Patient attempted to go back to sleep but was unable to due to consistent shortness of breath and muscle pain in neck prompting him to visit our ER for evaluation. Of note, patient recently had operations on bilateral big toes. He had recent amputation of left big toe greater than 4 weeks ago and right toenail removal less than 1 week ago. He has an extensive past medical history, no blood clots, no recent fever, no recent COVID-19 contacts, no chest pain, no productive cough, no hemoptysis, no long distance travel. He has history of intermittent HD with last session on December 04, 2019. He has extensive history of opioid dependence in addition to benzodiazepine dependence. It appears per INDUSTRIAL ELECTRICAL TECHNICIAN, patient had 6 days of [place] 10 mg every 4 hours and 15 morphine sulfate extended release twice daily dispensed on December 02, he has run out of these medications today (MUNDO PALOMINO DO) Review of Systems Review of Systems Fourteen body systems of review of systems have been reviewed. See HPI for pertinent positives and negative responses, other hou all other systems are negative, non-pertinent or non-contributory (MUNDO PALOMINO DO) Current Medications Current Medications Current Medications Medications (Trade) Dose Ordered Sig/Jace Start Time Stop Time Status Last Admin Dose Admin Sodium Chloride 1,000 ml @ 1,000 mls/hr Q1H 12/08/19 04:36 9/6/20 05:35 UNV (ERICKA PALOMINOW ) Allergies Allergies Allergies Coded Allergies Type Severity Reaction Last Updated Verified No Known Drug Allergies 12/19/18 No (HYDABURGMUNDO DO) Physical Exam Physical Exam Constitutional: Well developed, well nourished, no acute distress, non-toxic phillip earance. HENT: Normocephalic, atraumatic, bilateral external ears normal, oropharynx moist, poor dentition, no oral exudates, nose normal. Eyes: PERRLA, EOMI, conjunctiva normal, no discharge. Neck: Normal range of motion, supple, no stridor. No meningeal signs, negative kernig and brudzinski, no nuchal rigidity. Tenderness to bilateral paracervical muscles Cardiovascular: Heart rate regular, sinus rhythm, no murmurs rubs or gallops Lungs & Thorax: Bilateral breath sounds clear to auscultation Abdomen: Bowel sounds normal, soft, no tenderness, no masses, no pulsatile masses. Nonsurgical abdomen, no peritoneal signs Skin: Warm, dry, no erythema, no rash. Back: No tenderness, no CVA tenderness. Extremities: No cyanosis, no clubbing, ROM intact, no edema. Surgically missing left big toe with clean, dry, intact dressing overlying. Additional dressing that is blood tinged and dirty over right big toe from recent toenail removal. Actual toe looks fine without any acute signs of bleed or infection Neurologic: Alert and oriented X 3, grossly normal motor & sensory function, no focal deficits noted. Psychologic: Affect normal, judgement normal, anxious mood (HYDABURGMUNDO MCCULLOUGH) Current Patient Data Vital Signs Vital Signs Date Time Temp Pulse Resp B/P (MAP) Pulse Ox O2 Delivery O2 Flow Rate FiO2 12/08/19 04:35 97.5 89 18 100/68 (79) 97 Room Air (MUNDO PALOMINO DO) EKG EKG EKG ordered and interpreted by myself at 0453 hrs. as sinus rhythm at 83 bpm, unremarkable intervals, left axis deviation, no acute ischemic findings, no STEMI (GEORGETTEMUNDO DO) Radiology/Procedures Radiology/Procedures PROCEDURE: CHEST AP ONLY CHEST AP ONLY Clinical indications: Sepsis. COMPARISON: January 07, 2019. Findings: No acute lung infiltrate or pleural effusion or pulmonary edema or lung mass or pneumothorax is seen. The heart size, pulmonary vasculature, mediastinum and both daryn are unremarkable. Again seen is a metallic foreign body overlying the left apex. Impression: No acute radiographic abnormality is seen. Electronically signed by: Al Davenport MD (11/04/2019 5:09 PM) [id number] (HYDABURGMUNDO ) Radiology/Procedures IMAGING REPORT Signed PATIENT: ELEAZAR DOMINIQUE ACCOUNT: [id number] : 1965 LOCATION: ER AGE: 54 SEX: M EXAM STATUS: REG ER ORD. PHYSICIAN: KE TUCKER DO REASON: elevated d-dimer, soa PROCEDURE: PULMONARY PERFUSION IMG PARTIC PULMONARY PERFUSION IMG PARTIC 12/08/2019 6:14 AM INDICATION: Elevated d-dimer COMPARISON: Chest radiograph 12/08/2019 TECHNIQUE: Scintigraphic imaging of the lungs was performed for evaluation of perfusion physiology. 5.5 mCi technetium 99m MAA was administered. FINDINGS/ IMPRESSION: 1. There is a subsegmental perfusion defect involving the anterior basal segment of the lower lobe. Findings are limited secondary to lack of ventilation imaging. Findings suggest low probability for pulmonary embolism. Electronically signed by: Alan Woods MD (12/08/2019 9:52 AM) [facility] DICTATED AND SIGNED BY: ALAN WOODS MD DATE: 12/08/19951 CC: BLANKA FARLEY DO; KE TUCKER DO ~ IMAGING REPORT Signed PATIENT: ELEAZAR DOMINIQUE ACCOUNT: [id number] : 1965 LOCATION: ER AGE: 54 SEX: M EXAM STATUS: REG ER ORD. PHYSICIAN: KE TUCKER DO REASON: SOB, ELEVATED D-DIMER, RECENT TOE SURGERY PROCEDURE: VENOUS LOWER EXT BILATERAL VENOUS LOWER EXT BILATERAL History: Reason: SOB, ELEVATED D-DIMER, RECENT TOE SURGERY / Spl. Instructions: / History: Comparison: None. Discussion: Multiple longitudinal and transverse high resolution real-time images of the venous system of bilateral lower extremity were obtained with color and Doppler sampling. The common femoral, superficial femoral, popliteal and proximal calf veins are all patent and demonstrate normal flow and compressibility. Normal respiratory phasicity and augmentation is present. Impression: 1. No evidence of deep vein thrombosis. Electronically signed by: Bk Enciso DO (12/08/2019 12:21 PM) [facility] DICTATED AND SIGNED BY: BK ENCISO DO DATE: 12/08/19 1221 CC: BLANKA FARLEY DO; EK TUCKER DO ~ (KE TUCKER DO) Course & Med Decision Making Course & Med Decision Making Ambulatory patient seen walking from car to ER lobby, subsequently transported back to the ER bay in wheelchair in seen on arrival by myself Airway patent, breathing unlabored, circulation remarkable for hypotension 100s/60s, IV access obtained Comprehensive history and physical exam obtained, subsequent diagnostic studies ordered 1 L normal saline administered (MUNDO PALOMINO DO) Course & Med Decision Making Patient presents the ED with complaints of shortness of breath, speaking in full sentences, no respiratory distress, requires no supplemental oxygen. VQ scan with low probability for pulmonary emboli although does show some diminished flow to the subsegmental anterior basal left lower lobe. Lower extremity bilateral duplex ultrasound shows no evidence for DVT. Patient with normocytic anemia, slightly decreased from 1 month ago. Creatinine function is decreased although his potassium is 5.5. Patient will need follow up with his primary care physician. Cannot exclude covid as a possibility, although with recent surgery I suspect he was tested. Strict ED return precautions were given for increased work of breathing, respiratory distress or chest pain. Encouraged urgent outpatient follow-up with PMD (to repeat potassium level in the next 2 days) and nephrology. Life-threatening processes were considered but are low suspicion at this time, given history and physical exam. Pt was educated on all prescription medications and adverse effects. All patient's questions were answered and pt was stable at time of discharge. Differential includes ACS, dysrhythmia, pneumothorax or hemothorax, pulmonary embolus, pneumonia, bronchoconstriction, pulmonary edema, angioedema, epiglottitis, tracheitis, Keenan's angina, RPA/HARDWARE ENGINEERING MANAGER, anaphylaxis, angioedema, cardiac tamponade or murmurs, pericarditis, myocarditis, poisoning or toxicity, sepsis or autoimmune/neurologic disease. I spoken with the patient and her caregivers. I explained the patient's condition, diagnoses and treatment plan based on the information available to me at this time. I have answered the patient and her caregiver's questions and addressed any concerns. The patient and her caregivers have a good understanding of patient's diagnosis, condition and treatment plan as can be expected at this point. Vital signs have been stable. Patient's condition is stable and appropriate for discharge from the emergency department. Patient will pursue further outpatient evaluation with primary care physician or other designated or consulting physician as outlined in the discharge instructions. The patient and/or caregivers are agreeable to this plan of care and follow-up instructions have been explained in detail. The patient and/or caregivers have received these instructions in written form and have expressed an understanding of the discharge instructions. The patient and/or caregivers are aware that any significant change of condition or worsening of symptoms should prompt immediate return to this or the closest emergency department or call to 911. (KE SHAW DO) Dragon Disclaimer Dragon Disclaimer This electronic medical record was generated, in whole or in part, using a voice recognition dictation system. (MUNDO PALOMINO DO) The HEART Score for CP Pts HEART Score for Chest Pain: HEART Score for Chest Pain Response (Comments) Value History Slighlty/Non-Suspicious 0 ECG Normal 0 Age >45 - < 65 1 Risk Factors >3 Risk Factors or Hx CAD 2 Troponin < Normal Limit 0 Total 3 Risk Factors: Risk Factors: DM, Current or recent (<one month) smoker, HTN, HLP, family history of CAD, obesity. Risk Scores: Score 0 - 3: 2.5% MACE over next 6 weeks - Discharge Home Score 4 - 6: 20.3% MACE over next 6 weeks - Admit for Clinical Observation Score 7 - 10: 72.7% MACE over next 6 weeks - Early Invasive Strategies (MUNDO PALOMINO DO) PERC Rule for PE PERC Rule for PE Response (Comments) Value Age > 50: Yes 1 HR > 100: No 0 Sa02 on room air <95%: No 0 Unilateral leg swelling: No 0 Hemoptysis: No 0 Recent surgery or trauma: Yes 1 Prior PE or DVT: No 0 Hormone use: No 0 Total 2 Departure Departure: Impression: Primary Impression: Dyspnea Additional Impressions: CKD (chronic kidney disease) Elevated d-dimer Normocytic anemia Disposition: HOME/RESIDENCE PRIOR TO ADM Condition: STABLE Referrals: BLANKA FARLEY DO (PCP) Patient Instructions: Anemia, Nonspecific-Brief, Kidney Failure Additional Instructions: Follow up this week, in 2-3 days to have your potassium levels re drawn. Emerson Martinez MD [facility] [place] Address: [address] [place] [address], [address] [address] Justification of Admission: Justification of Admission: Justification of Admission Dx: N/A Acute Renal Failure: 3-Fold Rise in Serum Crea (MUNDO PALOMINO DO) Justification of Admission Dx: N/A (KE TCUKER DO) Problem Qualifiers MUNDO PALOMINO DO Dec 08, 2019 04:54 KE TUCKER DO Dec 08, 2019 10:00
[2019-12-08] MEDS: IV NORMAL SALINE 1,000ML 1,000 ML IV SCH (05:01)
[2019-12-08] MEDS: ACETAMINOPHEN 500 MG TABLET PO ONE (05:13)
[2019-12-08 05:14] LABS: BASO # 0.1 x10^3/uL (0.0-0.2); BASO % 1 % (0-3); EOS # 0.1 x10^3/uL (0.0-0.7); EOS % 2 % (0-3); LYMPH # 0.7 x10^3/uL (1.0-4.8); LYMPH % 9 % (24-48); MEAN CORPUSCULAR HEMOGLOBIN 27 pg (25-35); MEAN CORPUSCULAR HGB CONC 32 g/dL (31-37); MEAN CORPUSCULAR VOLUME 84 fL (79-100); MONO # 0.4 x10^3/uL (0.0-1.1); MONO % 4 % (0-9); NEUT # 7.3 x10^3uL (1.8-7.7); NEUT % 85 % (31-73); PLATELET COUNT 329 x10^3/uL (140-400); RED BLOOD COUNT 4.03 x10^6/uL (4.30-5.70); WHITE BLOOD COUNT 8.6 x10^3/uL (4.0-11.0)
[2019-12-08 05:27] LABS: CALCIUM 9.2 mg/dL (8.5-10.1); CREATININE 3.2 mg/dL (0.7-1.3); GFR 20.4; POTASSIUM 5.5 mmol/L (3.5-5.1)
--- NOTE | 2019-12-08 05:31 | EKG ---
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
[2019-12-08 05:33] LABS: ALBUMIN 2.7 g/dL (3.4-5.0); ALBUMIN/GLOBULIN RATIO 0.5 (1.0-1.7); TOTAL BILIRUBIN 0.3 mg/dL (0.2-1.0)
[2019-12-08] MEDS ORDERED: CONTRAST GIVEN. MC PRN (06:30)
[2019-12-08] MEDS ORDERED: IOHEXOL 350 MG/ML 100 ML VIAL. IV ONE (06:30)
--- NOTE | 2019-12-08 07:16 | RAD ---
CHEST AP ONLY Clinical Indication: Reason: shob / Spl. Instructions: / History: Comparison: AP chest, November 04, 2019. Findings: Stable tiny metallic foreign body projecting over the left lung apex. The cardiomediastinal silhouette is normal. Lungs are clear. There is no pneumothorax. No pleural effusion is appreciated. No acute bone abnormality. IMPRESSION: No acute cardiopulmonary process. Electronically signed by: Danny Curry MD (12/08/2019 7:13 AM) [facility]
[2019-12-08 08:00] LABS: AMPHETAMINE/METHAMPHETAMINE NEG (NEG); BARBITURATES NEG (NEG); BENZODIAZEPINES NEG (NEG); CANNABINOIDS NEG (NEG); COCAINE NEG (NEG); METHADONE NEG (NEG); OPIATES POS (NEG); PHENCYCLIDINE NEG (NEG)
--- NOTE | 2019-12-08 09:55 | RAD ---
PULMONARY PERFUSION IMG PARTIC 12/08/2019 6:14 AM INDICATION: Elevated d-dimer COMPARISON: Chest radiograph 12/08/2019 TECHNIQUE: Scintigraphic imaging of the lungs was performed for evaluation of perfusion physiology. 5.5 mCi technetium 99m MAA was administered. FINDINGS/ IMPRESSION: 1. There is a subsegmental perfusion defect involving the anterior basal segment of the lower lobe. Findings are limited secondary to lack of ventilation imaging. Findings suggest low probability for pulmonary embolism. Electronically signed by: La Nena Salmon MD (12/08/2019 9:52 AM) [facility]
[2019-12-08] MEDS: ACETAMINOPHEN 325 MG TABLET PO ONE (10:02)
--- NOTE | 2019-12-08 12:24 | RAD ---
VENOUS LOWER EXT BILATERAL History: Reason: SOB, ELEVATED D-DIMER, RECENT TOE SURGERY / Spl. Instructions: / History: Comparison: None. Discussion: Multiple longitudinal and transverse high resolution real-time images of the venous system of bilateral lower extremity were obtained with color and Doppler sampling. The common femoral, superficial femoral, popliteal and proximal calf veins are all patent and demonstrate normal flow and compressibility. Normal respiratory phasicity and augmentation is present. Impression: 1. No evidence of deep vein thrombosis. Electronically signed by: Bk Enciso DO (12/08/2019 12:21 PM) [facility]
[2019-12-08 13:30] VITALS: BP 120/75
== END 2019-12-08 13:45 | disposition home or self-care (01) ==
LOC: ER 04:16
DX: I13.0 Hypertensive heart and chronic kidney disease with heart failure and stage 1 through stage 4 chronic kidney disease, or unspecified chronic kidney disease (principal); E11.22 Type 2 diabetes mellitus with diabetic chronic kidney disease; N18.9 Chronic kidney disease, unspecified; I50.9 Heart failure, unspecified; R79.1 Abnormal coagulation profile; D64.9 Anemia, unspecified; R06.00 Dyspnea, unspecified; I25.10 Atherosclerotic heart disease of native coronary artery without angina pectoris; E78.00 Pure hypercholesterolemia, unspecified; F17.210 Nicotine dependence, cigarettes, uncomplicated; Z86.73 Personal history of transient ischemic attack (TIA), and cerebral infarction without residual deficits
CPT/HCPCS: 36415; 71045; 78580; 80053; 80307; 83690; 83880; 84484; 85025; 85379; 93005; 93970; 96360; 96374; 99285; A9540; J7030

== ENCOUNTER 2019-12-29 19:20 | Emergency (ER) | payer MEDICAID ==
[~2019-12-29] VITALS: Ht 177.8 cm; Wt 83.0 kg
[2019-12-29] MEDS ORDERED: ONDANSETRON PF 4 MG/2 ML VIAL. IVP ONE (19:45)
[2019-12-29 19:57] LABS: BASO # 0.1 x10^3/uL (0.0-0.2); BASO % 1 % (0-3); EOS # 0.2 x10^3/uL (0.0-0.7); EOS % 3 % (0-3); HEMATOCRIT 39.1 % (39.0-53.0); HEMOGLOBIN 12.6 g/dL (13.0-17.5); LYMPH # 0.8 x10^3/uL (1.0-4.8); LYMPH % 12 % (24-48); MEAN CORPUSCULAR HEMOGLOBIN 27 pg (25-35); MEAN CORPUSCULAR HGB CONC 32 g/dL (31-37); MEAN CORPUSCULAR VOLUME 84 fL (79-100); MONO # 0.4 x10^3/uL (0.0-1.1); MONO % 6 % (0-9); NEUT % 77 % (31-73); PLATELET COUNT 244 x10^3/uL (140-400); RED BLOOD COUNT 4.65 x10^6/uL (4.30-5.70); RED CELL DISTRIBUTION WIDTH 16.9 % (11.5-14.5); WHITE BLOOD COUNT 6.5 x10^3/uL (4.0-11.0)
[2019-12-29 20:07] LABS: CREATININE 4.2 mg/dL (0.7-1.3); GFR 14.9; POTASSIUM 4.9 mmol/L (3.5-5.1)
--- NOTE | 2019-12-29 20:08 | RAD ---
Examination: PORTABLE CHEST 1V History: Reason: chest pain / Comparison/Correlation: 12/08/2019 Findings: Portable upright frontal view of the chest was obtained. Heart size and pulmonary vasculature are normal. No infiltrate or pleural effusion. Radiopaque density at the left apical lobe is unchanged. Bony structures are grossly unremarkable. Impression: No active disease. Electronically signed by: Robel Silva MD (12/29/2019 8:05 PM) [id number]
[2019-12-29 20:19] LABS: ALBUMIN 3.3 g/dL (3.4-5.0); ALBUMIN/GLOBULIN RATIO 0.6 (1.0-1.7); MAGNESIUM 2.6 mg/dL (1.8-2.4); TOTAL BILIRUBIN 0.5 mg/dL (0.2-1.0); TOTAL PROTEIN 8.4 g/dL (6.4-8.2)
--- NOTE | 2019-12-29 21:55 | PHYS DOC ---
Past History Past Medical History: CAD, CHF, Diabetes, High Cholesterol, Hypertension, Renal Failure, TIA Additional Past Medical Histor: kidney injury, BONE INFECTION,CHRONIC PAIN Past Surgical History: Other Additional Past Surgical Histo: HEART STENTS, L TOE AMPUTATION, R GREAT TOENAIL REMOVAL Smoking: Cigarettes Alcohol Use: None Drug Use: None General Adult EDM: Chief Complaint: CHEST PAIN HPI: HPI: Patient is a 53-year-old male who presented to ER today for evaluation of substernal chest pain that started this morning. Patient also had some trouble breathing with nausea vomiting since last night. Patient has a history of diabetic, hypertension, stage IV renal failure, CHF, coronary artery disease. Patient also had left toes amputation [address] [facility]. Patient denies any fever, however he has nonproductive cough. Review of Systems: Review of Systems: Constitutional: Denies fever or chills Eyes: Denies change in visual acuity HENT: Denies nasal congestion or sore throat Respiratory: Positive for cough , no shortness of breath Cardiovascular: Positive for chest pain , no edema GI: Denies abdominal pain, Positive for nausea, vomiting, no bloody stools or diarrhea : Denies dysuria Musculoskeletal: Denies back pain or joint pain Integument: Denies rash Neurologic: Denies headache, focal weakness or sensory changes Endocrine: Denies polyuria or polydipsia Lymphatic: Denies swollen glands Psychiatric: Denies depression or anxiety Heart Score: HEART Score for Chest Pain: HEART Score for Chest Pain Response (Comments) Value History Moderately Suspicious 1 ECG Nonspecific Repolarizatio 1 Age >45 - < 65 1 Risk Factors >3 Risk Factors or Hx CAD 2 Troponin < Normal Limit 0 Total 5 Risk Factors: Risk Factors: DM, Current or recent (<one month) smoker, HTN, HLP, family history of CAD, obesity. Risk Scores: Score 0 - 3: 2.5% MACE over next 6 weeks - Discharge Home Score 4 - 6: 20.3% MACE over next 6 weeks - Admit for Clinical Observation Score 7 - 10: 72.7% MACE over next 6 weeks - Early Invasive Strategies Current Medications: Current Meds: Current Medications Medications (Trade) Dose Ordered Sig/Jace Start Time Stop Time Status Last Admin Dose Admin Metoprolol Tartrate (Lopressor Vial) 5 mg 1X ONCE 12/29/19 22:00 12/29/19 22:01 12/29/19 21:46 5 MG Morphine Sulfate (Morphine 4mg Syringe) 4 mg 1X ONCE 12/29/19 22:15 12/29/19 22:16 Ondansetron HCl (Zofran) 8 mg 1X ONCE 12/29/19 19:45 12/29/19 19:56 DC 12/29/19 19:46 8 MG Allergies: Allergies: Allergies Coded Allergies Type Severity Reaction Last Updated Verified No Known Drug Allergies 12/19/18 No Physical Exam: PE: Constitutional: Well developed, well nourished, no acute distress, non-toxic appearance. [] HENT: Normocephalic, atraumatic, bilateral external ears normal, oropharynx moist, no oral exudates, nose normal. [] Eyes: PERRLA, EOMI, conjunctiva normal, no discharge. [] Neck: Normal range of motion, no tenderness, supple, no stridor. [] Cardiovascular: sinus tachycardia, regular rhythm, no murmur [] Lungs & Thorax: Bilateral breath sounds clear to auscultation [] Abdomen: Bowel sounds normal, soft, no tenderness, no masses, no pulsatile masses. [] Skin: Warm, dry, no erythema, no rash. [] Back: No tenderness, no CVA tenderness. [] Extremities: No tenderness, no cyanosis, no clubbing, ROM intact, no edema. left foot wound with sutures in place, no swelling. Neurologic: Alert and oriented X 3, normal motor function, normal sensory function, no focal deficits noted. [] Psychologic: Affect normal, judgement normal, mood normal. [] Current Patient Data: Labs: Laboratory Tests Test 12/29/19 19:35 White Blood Count 6.5 x10^3/uL (4.0-11.0) Red Blood Count 4.65 x10^6/uL (4.30-5.70) Hemoglobin 12.6 g/dL (13.0-17.5) L Hematocrit 39.1 % (39.0-53.0) Mean Corpuscular Volume 84 fL (79-100) Mean Corpuscular Hemoglobin 27 pg (25-35) Mean Corpuscular Hemoglobin Concent 32 g/dL (31-37) Red Cell Distribution Width 16.9 % (11.5-14.5) H Platelet Count 244 x10^3/uL (140-400) Neutrophils (%) (Auto) 77 % (31-73) H Lymphocytes (%) (Auto) 12 % (24-48) L Monocytes (%) (Auto) 6 % (0-9) Eosinophils (%) (Auto) 3 % (0-3) Basophils (%) (Auto) 1 % (0-3) Neutrophils # (Auto) 5.0 x10^3uL (1.8-7.7) Lymphocytes # (Auto) 0.8 x10^3/uL (1.0-4.8) L Monocytes # (Auto) 0.4 x10^3/uL (0.0-1.1) Eosinophils # (Auto) 0.2 x10^3/uL (0.0-0.7) Basophils # (Auto) 0.1 x10^3/uL (0.0-0.2) Prothrombin Time 9.9 SEC (9.4-11.4) Prothrombin Time INR 1.0 (0.9-1.1) Activated Partial Thromboplast Time 26 SEC (23-33) Sodium Level 140 mmol/L (136-145) Potassium Level 4.9 mmol/L (3.5-5.1) Chloride Level 105 mmol/L (98-107) Carbon Dioxide Level 19 mmol/L (21-32) L Anion Gap 16 (6-14) H Blood Urea Nitrogen 45 mg/dL (8-26) H Creatinine 4.2 mg/dL (0.7-1.3) H Estimated GFR (Cockcroft-Gault) 14.9 BUN/Creatinine Ratio 11 (6-20) Glucose Level 131 mg/dL (70-99) H Calcium Level 10.0 mg/dL (8.5-10.1) Magnesium Level 2.6 mg/dL (1.8-2.4) H Total Bilirubin 0.5 mg/dL (0.2-1.0) Aspartate Amino Transferase (AST) 18 U/L (15-37) Alanine Aminotransferase (ALT) 17 U/L (16-63) Alkaline Phosphatase 137 U/L (46-116) H Troponin I Quantitative 0.042 ng/mL (0-0.055) BZ-Ajb-R-Type Natriuretic Peptide 5291 pg/mL (0-124) H Total Protein 8.4 g/dL (6.4-8.2) H Albumin 3.3 g/dL (3.4-5.0) L Albumin/Globulin Ratio 0.6 (1.0-1.7) L Lipase 55 U/L (73-393) L Vital Signs: Vital Signs Date Time Temp Pulse Resp B/P (MAP) Pulse Ox O2 Delivery O2 Flow Rate FiO2 12/29/19 21:49 95 16 197/125 (149) 98 Room Air 12/29/19 19:38 97.8 EKG: EKG: EKG was done at 1925, heart rate 104 beats per minute, sinus tachycardia, no ST segment elevation. [] Radiology/Procedures: Radiology/Procedures: [][address] [address] IMAGING REPORT Signed PATIENT: ELEAZAR DOMINIQUE ACCOUNT: [id number] : 1965 LOCATION: ER AGE: 54 SEX: M EXAM STATUS: REG ER ORD. PHYSICIAN: JUNE JARRELL DO REASON: chest pain PROCEDURE: PORTABLE CHEST 1V Examination: PORTABLE CHEST 1V History: Reason: chest pain / Comparison/Correlation: 12/08/2019 Findings: Portable upright frontal view of the chest was obtained. Heart size and pulmonary vasculature are normal. No infiltrate or pleural effusion. Radiopaque density at the left apical lobe is unchanged. Bony structures are grossly unremarkable. Impression: No active disease. Electronically signed by: Robel Cavazos MD (12/29/2019 8:05 PM) [facility] DICTATED AND SIGNED BY: ROBEL CAVAZOS MD DATE: 12/29/192004 CC: BLANKA FARLEY DO; JUNE JARRELL DO ~ Course & Med Decision Making: Course & Med Decision Making Pertinent Labs and Imaging studies reviewed. (See chart for details) Patient is a 53-year-old male who presented to ER today due to nausea, cough, chest pain. Patient was found to have hypertensive urgency. He also has stage IV renal failure. Patient will need to be admitted to hospital for further evaluation and treatment, discussed with Dr. Parekh who recommended that patient is to be transferred to [facility] due to his renal failure. Dr. Parekh will accept the patient for admitted over there. Sarah Disclaimer: Sarah Disclaimer: This electronic medical record was generated, in whole or in part, using a voice recognition dictation system. Departure Departure: Impression: Primary Impression: Chest pain Additional Impressions: CHF (congestive heart failure) Renal failure Hypertensive urgency Disposition: [facility] ([facility], accepted by Dr. Parekh) Condition: IMPROVED Referrals: BLANKA FARLEY DO (PCP) Justification of Admission: Justification of Admission: Justification of Admission Dx: N/A Acute Renal Failure: 3-Fold Rise in Serum Crea JUNE JARRELL DO Dec 29, 2019 21:55
[2019-12-29] MEDS ORDERED: METOPROLOL TARTRATE 5 MG/5 ML VIAL. IV ONE ×2 (22:00→22:30)
[2019-12-29] MEDS ORDERED: MORPHINE SULFATE 4 MG/ML DISP.SYRIN. IV ONE (22:15)
--- NOTE | 2019-12-29 23:03 | EKG ---
[facility] ED [facility] [address] [place] [id number] Test Date: 2019-12-29 Test Time: 19:25:38 Pat Name: ELEAZAR DOMINIQUE Department: Room: Gender: M Med Peds: : 1965 Requested By: JUNE JARRELL Order Number: [id number] Reading MD: Bhaskar Blake MD Measurements Intervals [place] Rate: 104 P: 71 MT: 164 QRS: -22 QRSD: 90 T: 98 QT: 340 QTc: 453 Interpretive Statements SINUS TACHYCARDIA LEFT ATRIAL ABNORMALITY LEFTWARD AXIS QRS(T) CONTOUR ABNORMALITY CONSISTENT WITH ANTEROSEPTAL INFARCT AGE UNDETERMINED T ABNORMALITY IN HIGH LATERAL LEADS ABNORMAL ECG Electronically Signed On 12-30-2019 12:58:11 CDT by Bhaskar Blake MD
[2019-12-29 23:30] VITALS: BP 170/92
[2019-12-29 23:34] LABS: BACTERIA,URINE 0 /HPF (0-FEW); BILIRUBIN,URINE NEG (NEG); CLARITY,URINE CLEAR; COLOR,URINE YELLOW; GLUCOSE,URINE 250 mg/dL (NEG); NITRITE,URINE NEG (NEG); RBC,URINE 0 /HPF (0-2); SQUAMOUS EPITHELIAL CELL,UR OCC /LPF; UROBILINOGEN,URINE 0.2 mg/dL (0.2 mg/dL); WBC,URINE RARE /HPF (0-4)
== END 2019-12-29 23:40 | disposition short-term general hospital (02) ==
LOC: ER 19:20
DX: I13.0 Hypertensive heart and chronic kidney disease with heart failure and stage 1 through stage 4 chronic kidney disease, or unspecified chronic kidney disease (principal); I50.9 Heart failure, unspecified; I16.0 Hypertensive urgency; R07.2 Precordial pain; I25.10 Atherosclerotic heart disease of native coronary artery without angina pectoris; E11.9 Type 2 diabetes mellitus without complications; E78.00 Pure hypercholesterolemia, unspecified; G89.29 Other chronic pain; R11.2 Nausea with vomiting, unspecified; F17.210 Nicotine dependence, cigarettes, uncomplicated
CPT/HCPCS: 36415; 71045; 80053; 81001; 83690; 83735; 83880; 84484; 85025; 85610; 85730; 93005; 96374; 96375; 96376; 99285; J2270; J2405; J3010; J3490

== ENCOUNTER 2020-02-28 11:06 | Emergency (ER) | payer MEDICAID ==
[~2020-02-28] VITALS: Ht 177.8 cm; Wt 83.0 kg
[~2020-02-28 11:06] MED LIST changes: +AMLO-187 PO; -AMLO10TA8 PO
[2020-02-28] MEDS ORDERED: HALOPERIDOL LACT 5 MG/ML VIAL. ONE (11:40)
[2020-02-28] MEDS ORDERED: HALOPERIDOL LACT 5 MG/ML VIAL. IM ONE (11:45)
[2020-02-28 12:06] LABS: BASO # 0.1 x10^3/uL (0.0-0.2); BASO % 1 % (0-3); EOS # 0.1 x10^3/uL (0.0-0.7); EOS % 1 % (0-3); HEMATOCRIT 39.7 % (39.0-53.0); HEMOGLOBIN 12.4 g/dL (13.0-17.5); LYMPH # 0.8 x10^3/uL (1.0-4.8); LYMPH % 8 % (24-48); MEAN CORPUSCULAR HEMOGLOBIN 28 pg (25-35); MEAN CORPUSCULAR HGB CONC 31 g/dL (31-37); MEAN CORPUSCULAR VOLUME 88 fL (79-100); MONO # 0.8 x10^3/uL (0.0-1.1); MONO % 8 % (0-9); NEUT # 8.6 x10^3uL (1.8-7.7); NEUT % 82 % (31-73); PLATELET COUNT 190 x10^3/uL (140-400); RED CELL DISTRIBUTION WIDTH 17.9 % (11.5-14.5); WHITE BLOOD COUNT 10.5 x10^3/uL (4.0-11.0)
--- NOTE | 2020-02-28 12:10 | PHYS DOC ---
Past History Past Medical History: CAD, CHF, Diabetes, High Cholesterol, Hypertension, Renal Failure, TIA Additional Past Medical Histor: kidney injury, BONE INFECTION,CHRONIC PAIN Past Surgical History: Other Additional Past Surgical Histo: HEART STENTS, L TOE AMPUTATION, R GREAT TOENAIL REMOVAL Smoking: Cigarettes Alcohol Use: None Drug Use: None General Adult EDM: Chief Complaint: OTHER COMPLAINTS HPI: HPI: History obtained from patient and daughter. Patient is a 54-year-old male past medical story significant for coronary artery disease, chronic kidney disease, insulin-dependent diabetes, recent left toe amputations who presents with a [facility] complaint of abnormal tongue sensation. Patient states he feels as though something is sitting on his tongue. He states he is felt this way over the past several days. He states that he was trying to bite or swallow the object off this time but cannot locate it. Daughter states that he seems to be hallucinating. She states that last time he exhibited the symptoms he was in renal failure. Daughter notes that the patient did have 2 toes amputated due to infection approximate 2 months ago at [facility]. Patient does state that he took his blood pressure medicine just prior to arrival because blood pressure was elevated. Daughter does express appears that he may take too much of his medicine. He denies any suicidal or homicidal ideations. He does state that people near his house have been watching him. He is unable to articulate any further to me or daughter what that means. He denies any abdominal pain. Denies chest pain or shortness breath. No syncope. Denies objective fevers. No other complaints. Review of Systems: Review of Systems: Constitutional: Denies fever or chills Eyes: Denies change in visual acuity HENT: Denies nasal congestion or sore throat Respiratory: Denies cough or shortness of breath Cardiovascular: Denies chest pain or edema GI: Denies abdominal pain, nausea, vomiting, bloody stools or diarrhea : Denies dysuria Musculoskeletal: Denies back pain or joint pain Integument: Denies rash Neurologic: Positive for confusion Endocrine: Denies polyuria or polydipsia Lymphatic: Denies swollen glands Psychiatric: Denies depression or anxiety Current Medications: Current Meds: Current Medications Medications (Trade) Dose Ordered Sig/Jace Start Time Stop Time Status Last Admin Dose Admin Haloperidol Lactate (Haldol) 5 mg STK-MED ONCE 02/28/20 11:40 02/28/20 11:41 DC Allergies: Allergies: Allergies Coded Allergies Type Severity Reaction Last Updated Verified No Known Drug Allergies 12/19/18 No Physical Exam: PE: Constitutional: Somnolent. Intermittently delirious. Easily arousable to voice. HENT: Normocephalic, atraumatic, bilateral external ears normal, oropharynx moist, no oral exudates, nose normal. [] Eyes: PERRLA, EOMI, conjunctiva normal, no discharge. [] Neck: Normal range of motion, no tenderness, supple, no stridor. [] Cardiovascular:Heart rate regular rhythm, no murmur [] Lungs & Thorax: Bilateral breath sounds clear to auscultation [] Abdomen: soft, no tenderness, no masses, no pulsatile masses. [] Skin: Warm, dry, no erythema, no rash. [] Back: No tenderness, no CVA tenderness. [] Extremities: Left first through third toe amputations noted. Slight overlying warmth. No cellulitis noted. No purulent drainage noted. Right great toe with shallow ulcerative lesion appreciated. Neurologic: Alert and oriented X 3, normal motor function, normal sensory function, no focal deficits noted. GCS (14) [id number]. [] Psychologic: Affect normal, judgement normal, mood normal. [] Current Patient Data: Labs: Laboratory Tests Test 02/28/20 11:45 White Blood Count 10.5 x10^3/uL Red Blood Count 4.50 x10^6/uL Hemoglobin 12.4 g/dL Hematocrit 39.7 % Mean Corpuscular Volume 88 fL Mean Corpuscular Hemoglobin 28 pg Mean Corpuscular Hemoglobin Concent 31 g/dL Red Cell Distribution Width 17.9 % Platelet Count 190 x10^3/uL Neutrophils (%) (Auto) 82 % Lymphocytes (%) (Auto) 8 % Monocytes (%) (Auto) 8 % Eosinophils (%) (Auto) 1 % Basophils (%) (Auto) 1 % Neutrophils # (Auto) 8.6 x10^3uL Lymphocytes # (Auto) 0.8 x10^3/uL Monocytes # (Auto) 0.8 x10^3/uL Eosinophils # (Auto) 0.1 x10^3/uL Basophils # (Auto) 0.1 x10^3/uL Sodium Level 140 mmol/L Potassium Level 4.0 mmol/L Chloride Level 106 mmol/L Carbon Dioxide Level 24 mmol/L Anion Gap 10 Blood Urea Nitrogen 48 mg/dL Creatinine 4.2 mg/dL Estimated GFR (Cockcroft-Gault) 14.9 BUN/Creatinine Ratio 11 Glucose Level 157 mg/dL Glucose (Fingerstick) 153 mg/dL Lactic Acid Level 4.8 mmol/L Calcium Level 8.8 mg/dL Magnesium Level 2.2 mg/dL Total Bilirubin 0.3 mg/dL Aspartate Amino Transf (AST/SGOT) 18 U/L Alanine Aminotransferase (ALT/SGPT) 16 U/L Alkaline Phosphatase 114 U/L Creatine Kinase 344 U/L Total Protein 6.4 g/dL Albumin 2.6 g/dL Albumin/Globulin Ratio 0.7 Lipase 156 U/L Salicylates Level < 2.8 mg/dL Salicylate Last Dose Date Unknown Salicylate Last Dose Time Unknown Acetaminophen Level < 2 mcg/mL Acetaminophen Last Dose Date Unknown Acetaminophen Last Dose Time Unknown Ethyl Alcohol Level < 10 mg/dL Current Medications Medications (Trade) Dose Ordered Sig/Jace Route PRN Reason Start Time Stop Time Status Last Admin Dose Admin Haloperidol Lactate (Haldol) 5 mg 1X ONCE IM 02/28/20 11:45 02/28/20 11:46 UNV Haloperidol Lactate (Haldol) 5 mg STK-MED ONCE .ROUTE 02/28/20 11:40 02/28/20 11:41 DC Laboratory Tests Test 02/28/20 11:45 Glucose (Fingerstick) 153 mg/dL (70-99) H Vital Signs: Vital Signs Date Time Temp Pulse Resp B/P (MAP) Pulse Ox O2 Delivery O2 Flow Rate FiO2 02/28/20 12:04 88 16 106/53 (70) 100 Room Air 02/28/20 11:17 98.1 EKG: EKG: [] EKG consistent with normal sinus rhythm. Ventricular rate of [address] depressions noted in the high anterior leads. No ST segment elevation noted. Intervals notable for QTC 512. EKG#2: EKG consistent with normal sinus rhythm. Ventricular rate 87 bpm. Left axis noted. QTC noted to still be 512. No acute ischemic changes appreciated. Radiology/Procedures: Radiology/Procedures: [address] [address] IMAGING REPORT Signed PATIENT: ELEAZAR DOMINIQUE ACCOUNT: [id number] : 1965 LOCATION: ER AGE: 54 SEX: M EXAM STATUS: REG ER ORD. PHYSICIAN: DARIO DYER DO REASON: AMS PROCEDURE: CT HEAD AND CERVICAL SPINE WO CT head without contrast. CT cervical spine without contrast. PQRS statement: CT scans at this facility use dose reduction including either automated exposure control, iterative reconstructions, and /or weight based radiation dosing via mA and kV modification when appropriate to reduce radiation dose to as low as reasonably achievable. HISTORY: Altered mental status. CT head findings: No intracranial hemorrhage, mass, or hydrocephalus. Age-indeterminate left caudate nucleus basal ganglia 1 cm hypodense ischemic infarct. Orbits, mastoids and bones are unremarkable. IMPRESSION: No acute traumatic abnormality. Age-indeterminate 1 cm left basal ganglia ischemic infarct. CT cervical spine findings: Craniocervical junction intact. Arthritic change C1-C2 atlantodental articulation with bone spurring. 2 mm anterolisthesis C3 on C4. There is a mild chronic appearing compression deformity of the C7 vertebra. No fracture of the cervical spine. Cervical disc height loss, bulky disc osteophytes and uncovertebral and facet spurs with spinal canal and neural foraminal stenoses. IMPRESSION: No acute osseous injury of the cervical spine. Cervical disc disease. Electronically signed by: Mia Hayden MD (02/28/2020 1:23 PM) [id number] DICTATED AND SIGNED BY: MIA HAYDEN MD DATE: 02/28/20 1323 CC: BLANKA FARLEY DO; DARIO DYER DO ~MTH0 0 [] Heart Score: Risk Factors: Risk Factors: DM, Current or recent (<one month) smoker, HTN, HLP, family history of CAD, obesity. Risk Scores: Score 0 - 3: 2.5% MACE over next 6 weeks - Discharge Home Score 4 - 6: 20.3% MACE over next 6 weeks - Admit for Clinical Observation Score 7 - 10: 72.7% MACE over next 6 weeks - Early Invasive Strategies Course & Med Decision Making: Course & Med Decision Making Pertinent Labs and Imaging studies reviewed. (See chart for details) [] Patient is a 54-year-old male who arrives with chief complaint of abnormal tongue sensation. On further interview daughter states that she is concerned that he is acting confused and may be hallucinate. States last time this occurred his kidney function was abnormal. Upon initial interview the patient states that he does not want any medical care. He states he does not want to be rehospitalized. He states he just wants me to look at his tongue and be discharged home. Upon inspection of his tongue there are no abnormalities visualized. Daughter was allowed in the room to discuss plan of care with the patient. While speaking with the patient he did become more somnolent. His blood pressure did decline to approximately 60/40. He did have mild tachycardia. At this point I did not feel the patient had capacity to make his own medical decisions. I was concerned for underlying medical condition altering his ability to make rational medical choices and affecting his capacity. While tending to place IVs patient to become verbally combative. 5 mg of IV Haldol was administered to facilitate work-up. Daughter was at bedside through entire process and was agreeable to our plan of care. Patient does have multiple electrolyte abnormalities. He does have a BUN approximate 48 with a creatinine of 4.1. Elevated lactic acidosis. This could be prerenal in nature. No leukocytosis present. Blood cultures pending. Patient has been given 2 L normal saline bolus without any urinary output. Antibiotics were deferred as are no obvious signs of acute infection. Patient will require hospitalization. Fortunately do not have nephrology coverage our facility or the ability to perform dialysis emergently if needed. I did discuss the case with Dr. Mares at [facility] who has accepted the patient to their facility. He remains hemodynamically and clinically stable while in the emergency department. His blood pressure did improve to 100/60 with a normal heart rate prior to discharge. He remains easily arousable to voice. Dragon Disclaimer: Dragon Disclaimer: This electronic medical record was generated, in whole or in part, using a voice recognition dictation system. Departure Departure: Impression: Primary Impression: Uremic encephalopathy Additional Impressions: Acute renal failure Qualified Codes: N17.9 - Acute kidney failure, unspecified Lactic acidemia Disposition: 02 DC/TRF OTHER SHORT TERM HOS Condition: STABLE Referrals: BLANKA FARLEY DO (PCP) DARIO DYER DO Feb 28, 2020 12:10
--- NOTE | 2020-02-28 12:12 | RAD ---
EXAM: CHEST AP ONLY INDICATION: Reason: AMS / Spl. Instructions: / History: . TECHNIQUE: Single view COMPARISON: Chest x-ray 12/29/2019 FINDINGS: The heart size is normal. The great vessels show aortic tortuosity. There is no hilar or mediastinal mass. Lungs are hypoventilatory but show no focal infiltrates. There is no pleural effusion or pneumothorax. There are no significant osseous abnormalities. IMPRESSION: Hypoventilatory chest showing no acute cardiopulmonary process Electronically signed by: Norberto Haynes MD (02/28/2020 12:09 PM) [facility] [place]
[2020-02-28 12:17] LABS: CALCIUM 8.8 mg/dL (8.5-10.1); CREATININE 4.2 mg/dL (0.7-1.3); GFR 14.9
[2020-02-28 12:21] LABS: ACETAMIN < 2 mcg/mL (10-30); SALIC < 2.8 mg/dL (2.8-20.0)
[2020-02-28 12:35] LABS: ALBUMIN 2.6 g/dL (3.4-5.0); ALBUMIN/GLOBULIN RATIO 0.7 (1.0-1.7); MAGNESIUM 2.2 mg/dL (1.8-2.4); TOTAL BILIRUBIN 0.3 mg/dL (0.2-1.0); TOTAL PROTEIN 6.4 g/dL (6.4-8.2)
--- NOTE | 2020-02-28 13:26 | RAD ---
CT head without contrast. CT cervical spine without contrast. PQRS statement: CT scans at this facility use dose reduction including either automated exposure control, iterative reconstructions, and /or weight based radiation dosing via mA and kV modification when appropriate to reduce radiation dose to as low as reasonably achievable. HISTORY: Altered mental status. CT head findings: No intracranial hemorrhage, mass, or hydrocephalus. Age-indeterminate left caudate nucleus basal ganglia 1 cm hypodense ischemic infarct. Orbits, mastoids and bones are unremarkable. IMPRESSION: No acute traumatic abnormality. Age-indeterminate 1 cm left basal ganglia ischemic infarct. CT cervical spine findings: Craniocervical junction intact. Arthritic change C1-C2 atlantodental articulation with bone spurring. 2 mm anterolisthesis C3 on C4. There is a mild chronic appearing compression deformity of the C7 vertebra. No fracture of the cervical spine. Cervical disc height loss, bulky disc osteophytes and uncovertebral and facet spurs with spinal canal and neural foraminal stenoses. IMPRESSION: No acute osseous injury of the cervical spine. Cervical disc disease. Electronically signed by: Rory Hayden MD (02/28/2020 1:23 PM) [id number]
[2020-02-28 13:32] VITALS: BP 95/61
--- NOTE | 2020-02-28 14:04 | RAD ---
TOES RIGHT Clinical Indication: Reason: diabetic ulcer to great toe / Comparison: None. Findings: No bone erosion is identified. There is soft tissue swelling of the great toe. No subcutaneous air or radiopaque foreign body is identified. Arterial calcification is seen. There is degenerative spurring at the base of the first proximal phalanx. The mineralization is normal. IMPRESSION: No radiographic evidence of osteomyelitis. Electronically signed by: Danny Curry MD (02/28/2020 2:01 PM) [facility]
--- NOTE | 2020-02-28 15:13 | EKG ---
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
--- NOTE | 2020-02-28 15:22 | EKG ---
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
== END 2020-02-28 14:40 | disposition short-term general hospital (02) ==
LOC: ER 11:06
DX: N17.9 Acute kidney failure, unspecified (principal); G93.49 Other encephalopathy; E87.2 Acidosis; I25.10 Atherosclerotic heart disease of native coronary artery without angina pectoris; E78.00 Pure hypercholesterolemia, unspecified; G89.29 Other chronic pain; F17.210 Nicotine dependence, cigarettes, uncomplicated; E11.22 Type 2 diabetes mellitus with diabetic chronic kidney disease; I13.0 Hypertensive heart and chronic kidney disease with heart failure and stage 1 through stage 4 chronic kidney disease, or unspecified chronic kidney disease; N18.9 Chronic kidney disease, unspecified; I50.9 Heart failure, unspecified; Z89.422 Acquired absence of other left toe(s); Z86.73 Personal history of transient ischemic attack (TIA), and cerebral infarction without residual deficits
CPT/HCPCS: 36415; 70450; 71045; 72125; 73660; 80053; 80329; 82550; 82947; 83605; 83690; 83735; 85025; 86850; 86900; 86901; 87040; 93005; 99285; G0480

== ENCOUNTER 2020-06-23 23:20 | Emergency (ER) | payer MEDICAID ==
[~2020-06-23] VITALS: Ht 177.8 cm; Wt 101.1 kg
[~2020-06-23 23:20] MED LIST changes: -ISOS60TA2 PO; +ISOS60TA55 PO
[2020-06-23] MEDS ORDERED: FUROSEMIDE 20 MG/2 ML VIAL IVP ONE (23:30)
[2020-06-23] MEDS ORDERED: ASPIRIN CHEWABLE 81 MG TABLET. PO ONE (23:30)
[2020-06-23] MEDS ORDERED: NITROGLYCERIN SUBLINGUAL 0.4 MG BOTTLE OF 25. SL PRN ×2 (23:30)
--- NOTE | 2020-06-23 23:30 | PHYS DOC ---
Past History Past Medical History: CAD, CHF, Diabetes, High Cholesterol, Hypertension, CO, Renal Failure, Stroke, TIA Additional Past Medical Histor: kidney injury, BONE INFECTION,CHRONIC PAIN Past Surgical History: Other Additional Past Surgical Histo: HEART STENTS, L TOE AMPUTATION, R GREAT TOENAIL REMOVAL Smoking: Cigarettes Alcohol Use: None Drug Use: None Adult General Chief Complaint Chief Complaint: SHORTNESS OF BREATH HPI HPI Patient is a 54-year-old male presenting via POV for shortness of breath. He is accompanied by daughter who provides most of the history as patient is dyspneic and speaking in few word sentences only. Daughter reports he has complicated past medical history for uncontrolled diabetes, heart failure reduced ejection fraction, x7 cardiac stents, "I think A. fib" for which patient is on Xarelto, hx cocaine abuse, chronic kidney disease with x3 prior episodes of hemodialysis, and most recent ray amputation of right foot 6 days ago at [facility]. Patient reports he was tested for Covid and negative prior to surgery and had unremarkable surgery. Was kept for several days at [facility] and discharged home with continued self-care yesterday. Patient reports having previously prescribed Lasix during his hospitalization and did not resume this postoperatively due to known chronic kidney disease. Admits he has been noncompliant with fluid restriction when discharged home and has had increased dyspnea on exertion and inability to lay flat. Worsening shortness of breath prior to arrival concerned him and daughter came was with him prompting her to transport him to our ER for evaluation. No fever, no chest pain just admits chest tightness and inability to catch his breath, no abdominal pain, dysuria, increased redness/streaking/erythema postoperative wound Review of Systems Review of Systems Fourteen body systems of review of systems have been reviewed. See HPI for pertinent positives and negative responses, other hou all other systems are negative, non-pertinent or non-contributory Allergies Allergies Allergies Coded Allergies Type Severity Reaction Last Updated Verified No Known Drug Allergies 12/19/18 No Physical Exam Physical Exam Constitutional: Well developed, well nourished, acute respiratory distress tripoding in wheelchair trying to catch breath HENT: Normocephalic, atraumatic, bilateral external ears normal, oropharynx dry, poor dentition, no oral exudates, nose normal. Eyes: PERRLA, EOMI, conjunctiva normal, no discharge. Neck: Normal range of motion, no tenderness, supple, no stridor. Cardiovascular: Tachycardic, sinus rhythm, no murmurs rubs or gallops Lungs & Thorax: Acute respiratory distress with increased work of breathing noted, accessory muscle use of neck with abdominal retractions present leaning forward in a tripoding position, crackles bilaterally with rales present in bilateral bases Abdomen: Bowel sounds normal, soft, no tenderness, no masses, no pulsatile masses. Nonsurgical abdomen, no peritoneal signs Skin: Warm, dry, prior ray amputation noted to left foot, right foot consistent with postop day 6 right ray amputation with well-appearing sutures, appropriate in appearance without any streaking, palpable erythema or expressible exudate Back: No tenderness, no CVA tenderness. Extremities: No tenderness, no cyanosis, no clubbing, ROM intact, no edema. Neurologic: Alert and oriented X 3, grossly normal motor & sensory function, no focal deficits noted. Psychologic: Anxious mood and affect Current Patient Data Vital Signs Vital Signs Date Time Temp Pulse Resp B/P (MAP) Pulse Ox O2 Delivery O2 Flow Rate FiO2 06/23/20 23:31 116 194/129 06/23/20 23:20 120 40 194/129 (150) 88 Room Air Lab Results Laboratory Tests Test 06/23/20 23:15 06/23/20 23:25 06/24/20 02:12 White Blood Count 12.9 x10^3/uL Red Blood Count 4.24 x10^6/uL Hemoglobin 12.0 g/dL Hematocrit 37.1 % Mean Corpuscular Volume 88 fL Mean Corpuscular Hemoglobin 28 pg Mean Corpuscular Hemoglobin Concent 32 g/dL Red Cell Distribution Width 15.7 % Platelet Count 255 x10^3/uL Neutrophils (%) (Auto) 87 % Lymphocytes (%) (Auto) 6 % Monocytes (%) (Auto) 5 % Eosinophils (%) (Auto) 1 % Basophils (%) (Auto) 1 % Neutrophils # (Auto) 11.3 x10^3uL Lymphocytes # (Auto) 0.8 x10^3/uL Monocytes # (Auto) 0.6 x10^3/uL Eosinophils # (Auto) 0.2 x10^3/uL Basophils # (Auto) 0.1 x10^3/uL Prothrombin Time 10.1 SEC Prothromb Time International Ratio 1.0 Activated Partial Thromboplast Time 35 SEC Sodium Level 137 mmol/L Potassium Level 5.2 mmol/L Chloride Level 104 mmol/L Carbon Dioxide Level 21 mmol/L Anion Gap 12 Blood Urea Nitrogen 64 mg/dL Creatinine 3.9 mg/dL Estimated GFR (Cockcroft-Gault) 16.3 BUN/Creatinine Ratio 16 Glucose Level 280 mg/dL Calcium Level 8.4 mg/dL Total Bilirubin 0.4 mg/dL Aspartate Amino Transf (AST/SGOT) 18 U/L Alanine Aminotransferase (ALT/SGPT) 18 U/L Alkaline Phosphatase 116 U/L Troponin I Quantitative 0.026 ng/mL 0.046 ng/mL RP-Fgs-Q-Type Natriuretic Peptide 96901 pg/mL Total Protein 7.0 g/dL Albumin 2.6 g/dL Albumin/Globulin Ratio 0.6 Bedside Venous pH 7.33 Bedside Venous pCO2 33 mmHg Bedside Venous pO2 47 mmHg Venous Blood HCO3 18 mmol/L POC Venous O2 Saturation (Andrew) 80 % Bedside FiO2 21 Urine Collection Type Unknown Urine Color Yellow Urine Clarity Clear Urine pH 6.5 Urine Specific [place] 1.015 Urine Protein >100 mg/dl Urine Glucose (UA) 250 mg/dL Urine Ketones (Stick) Neg mg/dL Urine Blood Trace Urine Nitrite Neg Urine Bilirubin Neg Urine Urobilinogen Dipstick 0.2 mg/dL Urine Leukocyte Esterase Neg Urine RBC Rare /HPF Urine WBC Occ /HPF Urine Squamous Epithelial Cells Few /LPF Urine Bacteria 0 /HPF Urine Opiates Screen Pos Urine Methadone Screen Neg Urine Barbiturates Neg Urine Phencyclidine Screen Neg Urine Amphetamine/Methamphetamine Neg Urine Benzodiazepines Screen Neg Urine Cocaine Screen Neg Urine Cannabinoids Screen Neg Urine Ethyl Alcohol Neg Current Medications Medications (Trade) Dose Ordered Sig/Jace Route PRN Reason Start Time Stop Time Status Last Admin Dose Admin Aspirin (Aspirin Chewable) 162 mg 1X ONCE PO 06/23/20 23:30 06/24/20 00:05 DC 06/23/20 23:30 Nitroglycerin (Nitrostat) 0.4 mg PRN Q5MIN PRN SL CP RATING > 1/10 06/23/20 23:30 06/24/20 23:29 06/23/20 23:31 Furosemide (Lasix) 80 mg 1X ONCE IVP 06/23/20 23:30 06/24/20 00:05 DC 06/23/20 23:30 Nitroglycerin (Nitrostat) 0.4 mg PRN Q5MIN PRN SL CHEST PAIN 06/23/20 23:30 Furosemide (Lasix) 40 mg STK-MED ONCE .ROUTE 06/23/20 23:33 06/23/20 23:33 DC Nitroglycerin/ Dextrose 250 ml @ 0 mls/hr 1X ONCE IV 06/24/20 00:00 06/24/20 00:05 DC 06/24/20 00:17 Furosemide (Lasix) 80 mg 1X ONCE IVP 06/24/20 00:15 06/24/20 00:16 DC Nicardipine HCl 50 mg/Sodium Chloride 270 ml @ 27 mls/hr CONT PRN IV SEE I/O RECORD 06/24/20 02:00 06/24/20 02:54 Sodium Chloride 250 ml @ As Directed STK-MED ONCE .ROUTE 06/24/20 02:45 06/24/20 02:45 DC Nicardipine HCl (Cardene) 25 mg STK-MED ONCE IV 06/24/20 02:45 06/24/20 02:45 DC EKG EKG EKG ordered and interpreted by myself at 2325 hrs. as sinus rhythm at 115 bpm, unremarkable intervals except QTC 458, left axis deviation, T wave inversions noted in leads I and aVL, no STEMI Repeat EKG ordered and interpreted by myself at 0248 hrs. as sinus rhythm at 112 bpm, unremarkable intervals, left axis deviation, persistent T wave inversions noted in leads I and aVL, no STEMI Radiology/Procedures Radiology/Procedures PROCEDURE: PORTABLE CHEST 1V INDICATION: Reason: shob / Spl. Instructions: / History: COMPARISON: February 28, 2020 FINDINGS: Single view of chest obtained. Cardiomediastinal silhouette is mildly prominent with tortuous aortic contour. High density structure again seen projecting over the left upper chest and could be either calcification within the region or metallic foreign body. Unchanged from prior. Mild interstitial and groundglass opacities bilaterally. IMPRESSION: * Interstitial and groundglass opacities bilaterally which could be from pulm onary edema or bilateral infiltrate. * Enlarged cardiomediastinal silhouette with tortuous prominent aortic contour. Causes such as aneurysmal dilatation of the aorta not excluded. Electronically signed by: Lamont Thomas MD (06/23/2020 11:48 PM) DESKTOP- [id number] Heart Score C/O Chest Pain: Yes HEART Score for Chest Pain: HEART Score for Chest Pain Response (Comments) Value History Moderately Suspicious 1 ECG Nonspecific Repolarizatio 1 Age >45 - < 65 1 Troponin >3 x Normal Limit 2 Total 5 Risk Factors: Risk Factors: DM, Current or recent (<one month) smoker, HTN, HLP, family history of CAD, obesity. Risk Scores: Risk Factors: DM, Current or recent (<one month) smoker, HTN, HLP, family history of CAD, obesity. Course & Med Decision Making Course & Med Decision Making Patient in obvious respiratory distress presenting with history concerning for potential fluid load and likely acute exacerbation of CHF. Physical exam consistent with fluid overload. Comprehensive diagnostic work-up performed and concerning for: Heart failure reduced ejection fraction with acute exacerbation, chronic kidney disease, normocytic anemia, leukocytosis, hyperkalemia, hyperglycemia X2 peripheral IVs established. 162 mg aspirin administered. Patient already on Xarelto. X1 sublingual nitro administered with improvement in symptoms. 80 mg IV Lasix administered and subsequent nitro drip started with "50%" improvement in symptoms per patient Despite patient's leukocytosis and suspect groundglass opacities noted on chest x-ray, I feel this is not infectious and rather cardiac in etiology Patient's respiratory status vastly improved with ER intervention; however, patient remains extremely ill. Patient's hypertension refractory to IV nitro d rip. IV Cardene drip subsequently started due to renal status. Patient not vaccinated for COVID-19. Has had no sick contacts, states he was recently tested negative preoperatively. Denies obvious COVID-19 contact while hospitalized at [facility]. Our facility is does not have access to rapid testing, will defer to accepting facility Patient and daughter requesting transfer to [facility] despite recent surgical intervention and all other specialist intervention at [facility]. Case was discussed with transfer physician who agreed need for transfer and accepted patient to their facility Patient and daughter updated on proposed plan of care that included EMS transport to [facility] location for hospital admission and continued medical care. CODE STATUS was discussed with patient and daughter, patient is full CODE STATUS at this time Critical Care Time This patient required critical care. Due to the fact that the patient required a significant amount of one on one physician - patient contact time, ordering and review of studies, arranging urgent treatment with development of a management plan, evaluation of patients response to treatment with frequent reassessments, and discussions with other providers this patient required 55 minutes of critical care time. Critical care time was indicated due to the inherent instability and/or potential for instability in this patient. The critical care time that is allocated to this patient is above and beyond any time spent on any other billable procedures performed on this patient. Dragon Disclaimer Dragon Disclaimer This electronic medical record was generated, in whole or in part, using a voice recognition dictation system. Departure Departure: Impression: Primary Impression: Acute on chronic HFrEF (heart failure with reduced ejection fraction) Additional Impressions: Chronic kidney disease, stage 4 (severe) Recent surgical procedure on lower extremity Uncontrolled type 2 diabetes mellitus Presence of stent in coronary artery in patient with coronary artery disease Chronic anticoagulation Hyperkalemia Leukocytosis Hypertensive emergency Disposition: 02 DC/TRF OTHER SHORT TERM HOS ([facility]) Admitting Physician: Other (DR FAIRBANKS) Condition: GUARDED Referrals: BLANKA FARLEY DO (PCP) Problem Qualifiers MUNDO PALOMINO DO Jun 23, 2020 23:30
[2020-06-23] MEDS ORDERED: FUROSEMIDE 40 MG/4 ML VIAL ONE (23:33)
--- NOTE | 2020-06-23 23:50 | RAD ---
INDICATION: Reason: shob / Spl. Instructions: / History: COMPARISON: February 28, 2020 FINDINGS: Single view of chest obtained. Cardiomediastinal silhouette is mildly prominent with tortuous aortic contour. High density structure again seen projecting over the left upper chest and could be either calcification within the region or metallic foreign body. Unchanged from prior. Mild interstitial and groundglass opacities bilateral ly. IMPRESSION: * Interstitial and groundglass opacities bilaterally which could be from pulmonary edema or bilatera l infiltrate. * Enlarged cardiomediastinal silhouette with tortuous prominent aortic contour. Causes such as aneur ysmal dilatation of the aorta not excluded. Electronically signed by: Lamont Thomas MD (06/23/2020 11:48 PM) DESKTOP-[id number]
[2020-06-24] MEDS ORDERED: NITROGLYCERIN PREMIX 250 ML IV ONE
[2020-06-24 00:01] LABS: BASO # 0.1 x10^3/uL (0.0-0.2); BASO % 1 % (0-3); EOS # 0.2 x10^3/uL (0.0-0.7); EOS % 1 % (0-3); HEMATOCRIT 37.1 % (39.0-53.0); LYMPH # 0.8 x10^3/uL (1.0-4.8); LYMPH % 6 % (24-48); MEAN CORPUSCULAR HEMOGLOBIN 28 pg (25-35); MEAN CORPUSCULAR HGB CONC 32 g/dL (31-37); MEAN CORPUSCULAR VOLUME 88 fL (79-100); MONO # 0.6 x10^3/uL (0.0-1.1); MONO % 5 % (0-9); NEUT # 11.3 x10^3uL (1.8-7.7); NEUT % 87 % (31-73); PLATELET COUNT 255 x10^3/uL (140-400); RED BLOOD COUNT 4.24 x10^6/uL (4.30-5.70); RED CELL DISTRIBUTION WIDTH 15.7 % (11.5-14.5); WHITE BLOOD COUNT 12.9 x10^3/uL (4.0-11.0)
[2020-06-24 00:07] LABS: CALCIUM 8.4 mg/dL (8.5-10.1); CREATININE 3.9 mg/dL (0.7-1.3); GFR 16.3; POTASSIUM 5.2 mmol/L (3.5-5.1)
[2020-06-24] MEDS ORDERED: FUROSEMIDE 40 MG/4 ML VIAL IVP ONE (00:15)
[2020-06-24 00:20] LABS: ALBUMIN 2.6 g/dL (3.4-5.0); ALBUMIN/GLOBULIN RATIO 0.6 (1.0-1.7); TOTAL BILIRUBIN 0.4 mg/dL (0.2-1.0)
[2020-06-24] MEDS ORDERED: IV NORMAL SALINE 250ML 250 ML ONE (02:45)
[2020-06-24 02:54] LABS: BARBITURATES NEG (NEG); BENZODIAZEPINES NEG (NEG); CANNABINOIDS NEG (NEG); COCAINE NEG (NEG); METHADONE NEG (NEG); OPIATES POS (NEG); PHENCYCLIDINE NEG (NEG)
[2020-06-24 02:56] LABS: BACTERIA,URINE 0 /HPF (0-FEW); BILIRUBIN,URINE NEG (NEG); CLARITY,URINE CLEAR; COLOR,URINE YELLOW; GLUCOSE,URINE 250 mg/dL (NEG); NITRITE,URINE NEG (NEG); RBC,URINE RARE /HPF (0-2); SQUAMOUS EPITHELIAL CELL,UR FEW /LPF; UROBILINOGEN,URINE 0.2 mg/dL (0.2 mg/dL); WBC,URINE OCC /HPF (0-4)
[2020-06-24 03:00] LABS: AMPHETAMINE/METHAMPHETAMINE NEG (NEG)
[2020-06-24 03:30] VITALS: BP 198/105
--- NOTE | 2020-06-25 07:57 | EKG ---
[address] [address] Test Date: 2020-06-24 Test Time: 02:46:16 Pat Name: ELEAZAR DOMINIQUE Department: Room: Gender: M [employer] Worker: : 1965 Requested By: MUNDO PALOMINO Order Number: [id number] Reading MD: Measurements Intervals [place] Rate: P: [place]: QRS: QRSD: T: QT: QTc: Interpretive Statements
--- NOTE | 2020-06-25 07:57 | EKG ---
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
== END 2020-06-24 03:35 | disposition short-term general hospital (02) ==
LOC: ER 23:20
DX: I13.0 Hypertensive heart and chronic kidney disease with heart failure and stage 1 through stage 4 chronic kidney disease, or unspecified chronic kidney disease (principal); E11.22 Type 2 diabetes mellitus with diabetic chronic kidney disease; N18.4 Chronic kidney disease, stage 4 (severe); I50.23 Acute on chronic systolic (congestive) heart failure; E87.5 Hyperkalemia; D72.829 Elevated white blood cell count, unspecified; I16.1 Hypertensive emergency; I25.10 Atherosclerotic heart disease of native coronary artery without angina pectoris; E78.00 Pure hypercholesterolemia, unspecified; I25.2 Old myocardial infarction; F17.210 Nicotine dependence, cigarettes, uncomplicated; Z95.5 Presence of coronary angioplasty implant and graft; Z79.01 Long term (current) use of anticoagulants; Z86.73 Personal history of transient ischemic attack (TIA), and cerebral infarction without residual deficits
CPT/HCPCS: 36415; 71045; 80053; 80307; 81001; 82803; 83880; 84484; 85025; 85610; 85730; 87040; 93005; 96365; 96366; 96368; 96375; 99291; J3490; J7050